=== PATIENT | male | born 1990 | race Caucasian/White ===

== ENCOUNTER 2017-01-08 11:59 | Inpatient (IN) | payer SELFPAY ==
[~2017-01-08] VITALS: Ht 170.2 cm; Wt 81.0 kg
[2017-01-08] MEDS ORDERED: ONDANSETRON HCL 4 MG/2 ML VIAL IV PUSH ONE (12:00)
[2017-01-08] MEDS ORDERED: PHENYLEPH/NS 1000 MCG/10 ML SYR IV ONE (12:00)
[2017-01-08] MEDS ORDERED: LIDOCAINE HCL 1% PF 5 ML AMPULE OTHER ONE (12:00)
[2017-01-08] MEDS ORDERED: MIDAZOLAM HCL 2 MG/2 ML VIAL IV ONE (12:00)
[2017-01-08] MEDS ORDERED: DEXAMETHASONE SOD PHOS 4 MG/ML VIAL IV ONE (12:00)
[2017-01-08] MEDS ORDERED: PROPOFOL 200 MG/20 ML AMP IV ONE (12:00)
[2017-01-08] MEDS ORDERED: SUCCINYLCHOLINE CHLORIDE 100 MG/5 ML SYRINGE IV PUSH ONE (12:00)
[2017-01-08] MEDS ORDERED: ESMOLOL HCL 100 MG/10 ML VIAL IV ONE (12:00)
[2017-01-08] MEDS ORDERED: SODIUM CHLORIDE 0.9% 20 ML VIAL IV ONE (12:00)
[2017-01-08] MEDS ORDERED: ePHEDrine/NS 25 MG/5 ML SYR IV ONE (12:00)
[2017-01-08 12:06] VITALS: BP 130/90; PULSE 85; RESP 17; TEMP 98.1; O2SAT 98
[2017-01-08] MEDS ORDERED: ONDANSETRON HCL 4 MG/2 ML VIAL IVP ONE (12:15)
[2017-01-08] MEDS ORDERED: MORPHINE SULFATE 4 MG/ML INJ IV PUSH ONE (12:15)
[2017-01-08] MEDS ORDERED: TETANUS/DIPHTHERIA TOXOID ADULT 0.5 ML VIAL IM ONE (12:15)
--- NOTE | 2017-01-08 12:15 | PD ---
HPI Chief Complaint: Laceration/Skin Injury Time Seen by Provider: 12:12 Travel History International Travel<30 days: No Contact w/Intl Traveler<30days: No Traveled to known affect area: No History of Present Illness HPI 26-year-old male presents to the ED via EMS after chain saw laceration to the anterior right lower leg. The event occurred around 10:30 a.m. Patient endorses limitations to range of motion, states that he cannot flex the toes. He denies numbness, tingling, weakness. Unsure of his last tetanus immunization. He denies chronic health problems and takes no daily medications. Last meal, a burrito, around 8:30 this morning. PFSH Past Medical History Hx Anticoagulant Therapy: No Social History Tobacco Use: Yes (1PPD) Allergies-Medications (Allergen,Severity, Reaction): Coded Allergies: No Known Allergies (Unverified , 01/08/17) Reported Meds & Prescriptions Reported Meds & Active Scripts Active No Active Prescriptions or Reported Medications Review of Systems Except as stated in HPI: all other systems reviewed are Neg Physical Exam Narrative GENERAL: Well-nourished, well-developed white male in no acute distress. SKIN: Focused skin assessment warm/dry. 5 cm laceration anterior lower right leg, proximal to the ankle joint. HEAD: Normocephalic. EYES: No scleral icterus. No injection or drainage. NECK: Supple, trachea midline. No JVD or lymphadenopathy. CARDIOVASCULAR: Regular rate and rhythm without murmurs, gallops, or rubs. RESPIRATORY: Breath sounds equal bilaterally. No accessory muscle use. GASTROINTESTINAL: Abdomen soft, non-tender, nondistended. MUSCULOSKELETAL: No cyanosis, or edema. FOCUSED RIGHT LOWER EXTREMITY EXAM: Foot resting in plantar flexion. 2+ anterior tibial pulse. No palpable DP pulse. Patient is able to flex the toes. Transection of the muscles visible at the superior extensor retinaculum. Unable to extend the toes. Refuses to dorsiflex the ankle 2/2 pain. Sensation intact to light touch distally. Cap refill less than 2 seconds. BACK: Nontender without obvious deformity. No CVA tenderness. Data Data Last Documented VS Vital Signs Date Time Temp Pulse Resp B/P (MAP) Pulse Ox O2 Delivery O2 Flow Rate FiO2 01/08/17 13:17 71 16 123/75 (91) 97 Room Air 01/08/17 12:06 98.1 Orders Orders Tibia/Fibula (Ap/Lat) (01/08/17 12:09) Ice/Cold Pack (01/08/17 12:09) Tetanus/Diphtheria Tox Adult (Tetanus/Di (01/08/17 12:15) Basic Metabolic Panel (Bmp) (01/08/17 12:09) Complete Blood Count With Diff (01/08/17 12:09) Iv Access Insert/Monitor (01/08/17 12:09) Ecg Monitoring (01/08/17 12:09) Oximetry (01/08/17 12:09) Morphine Inj (Morphine Inj) (01/08/17 12:15) Ondansetron Inj (Zofran Inj) (01/08/17 12:15) Sodium Chloride 0.9% Flush (Ns Flush) (01/08/17 12:15) Splinting (01/08/17 ) Electrocardiogram (01/08/17 ) Chest, Single Ap (01/08/17 ) Urinalysis - C+S If Indicated (01/08/17 13:10) NPO (01/08/17 13:10) Cefazolin Inj (Ancef Inj) (01/08/17 13:15) Consult Podiatry (01/08/17 ) Admit Order (Ed Use Only) (01/08/17 13:33) Labs Laboratory Tests Test 01/08/17 12:20 White Blood Count 9.0 TH/MM3 Red Blood Count 4.60 MIL/MM3 Hemoglobin 15.3 GM/DL Hematocrit 44.0 % Mean Corpuscular Volume 95.6 FL Mean Corpuscular Hemoglobin 33.3 PG Mean Corpuscular Hemoglobin Concent 34.8 % Red Cell Distribution Width 12.9 % Platelet Count 173 TH/MM3 Mean Platelet Volume 9.3 FL Neutrophils (%) (Auto) 78.8 % Lymphocytes (%) (Auto) 13.7 % Monocytes (%) (Auto) 5.5 % Eosinophils (%) (Auto) 1.7 % Basophils (%) (Auto) 0.3 % Neutrophils # (Auto) 7.1 TH/MM3 Lymphocytes # (Auto) 1.2 TH/MM3 Monocytes # (Auto) 0.5 TH/MM3 Eosinophils # (Auto) 0.2 TH/MM3 Basophils # (Auto) 0.0 TH/MM3 CBC Comment DIFF FINAL Differential Comment Blood Urea Nitrogen 13 MG/DL Creatinine 1.06 MG/DL Random Glucose 126 MG/DL Calcium Level 8.3 MG/DL Sodium Level 139 MEQ/L Potassium Level 4.2 MEQ/L Chloride Level 108 MEQ/L Carbon Dioxide Level 25.1 MEQ/L Anion Gap 6 MEQ/L Estimat Glomerular Filtration Rate 84 ML/MIN MDM Medical Decision Making Medical Screen Exam Complete: Yes Emergency Medical Condition: Yes Differential Diagnosis muscle transection versus laceration versus tendinous injury versus open fracture verses need for tetanus immunization versus other Narrative Course 26-year-old male presents to the ED via EMS after chain saw laceration to the anterior right lower leg. The event occurred around 10:30 a.m. Patient endorses limitations to range of motion, states that he cannot flex the toes. Unsure of his last tetanus immunization. Last meal, a burrito, around 8:30 this morning. Patient tachycardic on presentation, alert, oriented. Physical exam reveals a 4-5 cm laceration of the anterior aspect of the right lower leg, proximal to the ankle joint. Foot resting in plantar flexion. 2+ anterior tibial pulse. No palpable DP pulse. Patient is able to flex the toes. Transection of the muscles visible at the superior extensor retinaculum. Refuses to dorsiflex the ankle 2/2 pain. Sensation intact to light touch distally. Cap refill less than 2 seconds. The patient was ordered nothing by mouth. The wound was irrigated and a wet-to-dry dressing was applied. Tetanus immunization updated. Patient was administered 4 mg morphine IV. X-ray of the tibia-fibula reveals a cortical carolina of the tibia per my read. Patient was administered 1 g Ancef IV. I spoke with Dr. Gonzalez who will take the patient to surgery today. Short leg splint was placed at Dr. Gonzalez's request. I discussed this plan with the patient who is reluctantly agreeable. I discussed the patient with the residents who agree to accept him to the medicine service under Dr. Gutierrez. Please see medicine and podiatry notes for disposition. Scripts No Active Prescriptions or Reported Meds Lottie Paulino Jan 08, 2017 12:15
[2017-01-08] MEDS: SODIUM CHLORIDE 0.9% FLUSH 10 ML FLUSH IV FLUSH PRN ×2 (12:19→13:46)
[2017-01-08 12:39] LABS: AUTOMATED NEUTROPHIL # 7.1 TH/MM3 (1.8-7.7); BASOPHIL % 0.3 % (0.0-2.0); EOSINOPHIL # 0.2 TH/MM3 (0-0.4); EOSINOPHIL % 1.7 % (0.0-4.0); HEMO FLAGS DIFF FINAL; LYMPH % 13.7 % (9.0-44.0); LYMPHOCYTE # 1.2 TH/MM3 (1.0-4.8); MEAN CELL VOLUME 95.6 FL (80.0-100.0); MEAN CORPUSCULAR HEMOGLOBIN 33.3 PG (27.0-34.0); MEAN CORPUSCULAR HGB CONC 34.8 % (32.0-36.0); MONO % 5.5 % (0.0-8.0); NEUT % 78.8 % (16.0-70.0); PLATELET COUNT 173 TH/MM3 (150-450); RED CELL DISTRIBUTION WIDTH 12.9 % (11.6-17.2)
[2017-01-08 12:59] LABS: BICARBONATE 25.1 MEQ/L (21.0-32.0)
--- NOTE | 2017-01-08 13:01 | RADRPT ---
EXAM DATE/TIME: 01/08/2017 12:43 [facility] COMPARISON: No previous studies available for comparison. INDICATIONS : Chainsaw injury to right lower leg today MEDICAL HISTORY : None. SURGICAL HISTORY : None. ENCOUNTER: Initial ACUITY: 1 day PAIN SCORE: 10/10 LOCATION: Right tib/fib FINDINGS: Two view examination of the right tibia demonstrates soft tissue laceration and swelling distally. Mary Ann cency in the distal tibia and fibula consistent with incomplete nondisplaced fracture along the anter ior cortex suspected. CONCLUSION: Nondisplaced fracture along the anterior cortex of the tibia and fibula. Thierry Lopes MD on January 08, 2017 at 12:58 Board Certified Radiologist. This report was verified electronically.
[2017-01-08 13:06] LABS: POTASSIUM 4.2 MEQ/L (3.5-5.1)
[2017-01-08 13:17] VITALS: BP 123/75; PULSE 71; RESP 16; O2SAT 97
--- NOTE | 2017-01-08 13:45 | HHI.HP ---
HPI Service Family Medicine Primary Care Physician No Primary Care Physician Admission Diagnosis laceration right anterior chandler with tendinous injury Diagnoses: International Travel<30 Days: No Contact w/Intl Traveler<30days: No Known Affected Area: No History of Present Illness 26 year old generally healthy male presents to the ED after a chain saw accident. He was cutting a tree when the chain saw "kicked back" and struck his right lower anterior leg. The laceration reached deep into the muscle and slightly into the cortex of the tibia and fibula. He reports he had "quite a bit " of bleeding. His pain is currently well controlled with morphine. The accident happened at 10:30 this morning. The chain saw only struck the place described above and did not strike any other part of his body. He is not feeling weak, dizzy, or lightheaded. He is not having chest pain, shortness of breath, abdominal pain, nausea, vomiting. He is unable to dorsiflex his foot but is still able to plantar flex. He has palpable pulses, posterior tibial and dorsalis pedis. He has normal color of his foot. He has mild numbness in his toes, but is also wearing an ice pack. He received tetanus toxoid in the ED, and does not know when his last tetanus shot was. He has no significant past medical history and no history of surgeries. He does smoke a pack per day. He had childhood asthma that resolved as an adult. He reports no drug use. He drinks a moderate amount of alcohol but has never had alcohol withdrawals or seizures. (Ronald lGaser MD R3) Review of Systems Constitutional: DENIES: Fatigue, Fever, Weight gain, Weight loss, Change in appetite Endocrine: DENIES: Polyuria, Polyphagia Eyes: DENIES: Blurred vision, Double Vision Ears, nose, mouth, throat: DENIES: Ear Pain Respiratory: DENIES: Cough, Shortness of breath Cardiovascular: DENIES: Chest pain Gastrointestinal: DENIES: Abdominal pain, Constipation, Diarrhea, Nausea, Vomiting Hematologic/lymphatic: DENIES: Lymphadenopathy Neurologic: DENIES: Headache, Seizures, Tremor Psychiatric: DENIES: Anxiety, Depression (Ronald Glaser MD R3) Past Family Social History Past Medical History Childhood asthma, resolved in adulthood Past Surgical History None Reported Medications Reported Meds & Active Scripts Active No Active Prescriptions or Reported Medications (Ronald Glaser MD R3) Allergies: Coded Allergies: No Known Allergies (Unverified , 01/08/17) Active Ordered Medications Inpatient Medications Cefazolin Sodium 1000 mg/Sodium Chloride 100 ml @ 200 mls/hr ONCE ONCE IV Last administered on 01/08/17 13:46; Start 01/08/17 at 13:15; Stop 01/08/17 at 13:44; Status DC Morphine Sulfate (Morphine Inj) 4 mg ONCE ONCE IV PUSH Last administered on 12:19; Start 01/08/17 at 12:15; Stop 01/08/17 at 12:16; Status DC Ondansetron HCl (Zofran Inj) 4 mg ONCE ONCE IVP Last administered on 12:19; Start 01/08/17 at 12:15; Stop 01/08/17 at 12:16; Status DC Sodium Chloride 1,000 ml @ 999 mls/hr BOLUS ONCE IV ; Start 01/08/17 at 14:00 ; Stop 01/08/17 at 15:00 Sodium Chloride (NS Flush) 2 ml UNSCH PRN IV FLUSH FLUSH AFTER USING IV ACCESS Last administered on 01/08/17 13:46; Start 01/08/17 at 12:15 Tetanus/ Diphtheria Toxoids (Tetanus/ Diphtheria Tox Adult) 0.5 ml ONCE ONCE IM Last administered on 01/08/17 12:18; Start 01/08/17 at 12:15; Stop at 12:16; Status DC Family History Father: healthy Mother: healthy Siblings: healthy Social History Smoking: pack per day Alcohol: 3-4 times a week, small amount each time Drug use: None 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 Laceration extends deep into the muscle. HEENT: Normocephalic, no conjunctivitis, no nasal discharge, normal pharynx, Mallampati class II Neck: No thyromegaly, no lymphadenopathy, supple CV: RRR, no murmurs, rubs, or gallops. PT and DP pulses intact in right foot. Normal capillary refill in right foot. Color symmetrical between feet. Lungs: CTAB, no wheezing. Abdomen: Soft, nontender, non-distended, normal bowel sounds. Ext: No swelling, right lower leg with ice pack, laceration packed with gauze and wrapped. Psych: Appropriate affect Neuro: Awake, alert, intact sensation in right foot. Unable to dorsiflex right foot, but can plantar flex right foot. Laboratory Laboratory Tests Test 01/08/17 12:20 White Blood Count 9.0 Red Blood Count 4.60 Hemoglobin 15.3 Hematocrit 44.0 Mean Corpuscular Volume 95.6 Mean Corpuscular Hemoglobin 33.3 Mean Corpuscular Hemoglobin Concent 34.8 Red Cell Distribution Width 12.9 Platelet Count 173 Mean Platelet Volume 9.3 Neutrophils (%) (Auto) 78.8 Lymphocytes (%) (Auto) 13.7 Monocytes (%) (Auto) 5.5 Eosinophils (%) (Auto) 1.7 Basophils (%) (Auto) 0.3 Neutrophils # (Auto) 7.1 Lymphocytes # (Auto) 1.2 Monocytes # (Auto) 0.5 Eosinophils # (Auto) 0.2 Basophils # (Auto) 0.0 CBC Comment DIFF FINAL Differential Comment Blood Urea Nitrogen 13 Creatinine 1.06 Random Glucose 126 Calcium Level 8.3 Sodium Level 139 Potassium Level 4.2 Chloride Level 108 Carbon Dioxide Level 25.1 Anion Gap 6 Estimat Glomerular Filtration Rate 84 (Ronald Glaser MD R3) Result Diagram: 01/08/17 1220 01/08/17 1220 Imaging Last 72 hours Impressions Tibia/Fibula X-Ray 01/08/17 1209 Signed Impressions: Service Date/Time: Sunday, January 08, 2017 12:43 - CONCLUSION: Nondisplaced fracture along the anterior cortex of the tibia and fibula. Thierry Lopes MD (Ronald Glaser MD R3) Septic Shock Reassessment Heart: Regular rate and rhythm Lungs: Clear Skin: Warm Capillary Refill: <2 seconds (Ronald Glaser MD R3) Caprini VTE Risk Assessment Caprini VTE Risk Assessment: Mod/High Risk (score >= 2) VTE Pharm Contraindication: High risk for bleeding Caprini Risk Assessment Model Point Value = 1 Point Value = 2 Point Value = 3 Point Value = 5 Age 41-60 Minor surgery BMI > 25 kg/m2 Swollen legs Varicose veins or History of unexplained or recurrent spontaneous Oral contraceptives or hormone replacement Sepsis (< 1 month) Serious lung disease, including pneumonia (< 1 month) Abnormal pulmonary function Acute myocardial infarction Congestive heart failure (< 1 month) History of inflammatory bowel disease Medical patient at bed rest Age 61-74 Arthroscopic surgery Major open surgery (> 45 min) Laparoscopic surgery (> 45 min) Malignancy Confined to bed (> 72 hours) Immobilizing plaster cast Central venous access Age >= 75 History of VTE Family history of VTE Factor V Leiden Prothrombin [id number] Lupus anticoagulant Anticardiolipin antibodies Elevated serum homocysteine Heparin-induced thrombocytopenia Other congenital or acquired thrombophilia Stroke (< 1 month) Elective arthroplasty Hip, pelvis, or leg fracture Acute spinal cord injury (< 1 month) Prophylaxis Regimen Total Risk Factor Score Risk Level Prophylaxis Regimen 0-1 Low Early ambulation 2 Moderate Order ONE of the following: *Sequential Compression Device (SCD) *Heparin 5000 units SQ BID 3-4 Higher Order ONE of the following medications: *Heparin 5000 units SQ TID *Enoxaparin/Lovenox 40 mg SQ daily (WT < 150 kg, CrCl > 30 mL/min) *Enoxaparin/Lovenox 30 mg SQ daily (WT < 150 kg, CrCl > 10-29 mL/min) *Enoxaparin/Lovenox 30 mg SQ BID (WT < 150 kg, CrCl > 30 mL/min) AND/OR *Sequential Compression Device (SCD) 5 or more Highest Order ONE of the following medications: *Heparin 5000 units SQ TID (Preferred with Epidurals) *Enoxaparin/Lovenox 40 mg SQ daily (WT < 150 kg, CrCl > 30 mL/min) *Enoxaparin/Lovenox 30 mg SQ daily (WT < 150 kg, CrCl > 10-29 mL/min) *Enoxaparin/Lovenox 30 mg SQ BID (WT < 150 kg, CrCl > 30 mL/min) AND *Sequential Compression Device (SCD) (Ronald Glaser MD R3) Assessment and Plan Assessment and Plan 26 year old male presents with soft tissue laceration of the right lower leg with flexor tendon injury, along with incomplete non-displaced fracture along the anterior cortex of the distal tibia and fibula. Code Status FULL CODE Discussed Condition With Discussed with Dr. Peterson, Dr. Roque, Dr. Gutierrez (Ronald Glaser MD R3) Attending Attestation The patient has been seen and examined. The chart and all resident notes have been reviewed. I agree that inpatient care is appropriate and that a two midnight stay is expected for the reasons documented in the resident history and physical. I have discussed this with the resident and certify the resident s order for inpatient admission. (Lakesha Gutierrez MD) Problem List: (1) Laceration of right lower extremity ICD Codes: S81.811A - Laceration without foreign body, right lower leg, initial encounter Status: Acute Plan: 26 year old male presents with soft tissue laceration of the right lower leg with flexor tendon injury, along with incomplete non-displaced fracture along the anterior cortex of the distal tibia and fibula. - Cefazolin pre-operatively - Tetanus toxoid given in ED - Add tetanus immune globulin given uncertain vaccine history and large/dirty wound - Follow up MRI of lower leg - Podiatry consulted, Dr. Gonzalez. Plan for OR today. - Regular neurovascular checks, monitor for compartment syndrome. - Pain management: Ibuprofen 400 mg q6hrs scheduled, Percocet 5-325 for pain 3-5 , Percocet 10-325 for pain 6-10, morphine 2 mg for breakthrough pain. Adjust as needed. (2) Nondisplaced fracture of distal end of right tibia ICD Codes: S82.301A - Unspecified fracture of lower end of right tibia, initial encounter for closed fracture Status: Acute Plan: Non-displaced fracture of the cortex of the distal anterior tibia/fibula from chain saw accident. - Non-weight bearing status - Ice/cold pack for inflammation/swelling - Monitor for compartment syndrome - Physical therapy consultation - Orthopedics consultation - Likely will require long-cast and crutches - See above for pain management (3) Nondisplaced physeal fracture of distal end of right fibula ICD Codes: S89.301A - Unspecified physeal fracture of lower end of right fibula , initial encounter for closed fracture Status: Acute Plan: See plan above (4) Nutrition, metabolism, and development symptoms ICD Codes: R63.8 - Other symptoms and signs concerning food and fluid intake Status: Acute Plan: NPO pending surgery Normal electrolytes NS at 100 mls/hr (5) Contraindication to anticoagulation therapy ICD Codes: Z53.09 - Procedure and treatment not carried out because of other contraindication Status: Acute Plan: Hold anticoagulation pre-op (Ronald Glaser MD R3) Ronald Glaser MD R3 Jan 08, 2017 13:45 Lakesha Gutierrez MD Jan 09, 2017 16:52
[2017-01-08] MEDS ORDERED: SODIUM CHLOR 0.9% 1000 ML INJ 1,000 ML IV ONE (14:00)
--- NOTE | 2017-01-08 14:02 | PD.VS.CON ---
History of Present Illness Chief Complaint: R lower leg laceration, nonpalpable pulse Consult Requested by: Dr. Gonzalez History of Present Illness 26 yo male with no other medical problems who cut his RIGHT leg this morning about 1030 with a chainsaw. Has diminished motor function and no palpable pulse per report. The patient notes that there was " a lot of blood " on scene. Past/Family/Social History Past Medical History tobacco abuse Past Surgical History none Social History smoker Family History [place] Home Medications No Active Prescriptions or Reported Meds Coded Allergies: No Known Allergies (Unverified , 01/08/17) Review of Systems Cardiovascular: DENIES: Lower Extremity Edema Musculoskeletal: COMPLAINS OF: Joint pain Physical Exam Vitals/I&O Date Time Temp Pulse Resp B/P (MAP) Pulse Ox O2 Delivery O2 Flow Rate FiO2 01/08/17 13:17 71 16 123/75 (91) 97 Room Air 01/08/17 12:06 98.1 85 17 130/90 (103) 98 Neuro: alert, oriented, no distress HEENT: NC/AT; anicteric sclera Neck: trachea midline Heart: reg rate Lungs: nonlabored breathing Vascular: palpable DP and PT on RIGHT foot Extremities: Large, deep laceration with exposed muscle Palpable DP distal to laceration diminished ability to dorsiflex foot Laboratory Tests Test 01/08/17 12:20 White Blood Count 9.0 Red Blood Count 4.60 Hemoglobin 15.3 Hematocrit 44.0 Mean Corpuscular Volume 95.6 Mean Corpuscular Hemoglobin 33.3 Mean Corpuscular Hemoglobin Concent 34.8 Red Cell Distribution Width 12.9 Platelet Count 173 Mean Platelet Volume 9.3 Neutrophils (%) (Auto) 78.8 Lymphocytes (%) (Auto) 13.7 Monocytes (%) (Auto) 5.5 Eosinophils (%) (Auto) 1.7 Basophils (%) (Auto) 0.3 Neutrophils # (Auto) 7.1 Lymphocytes # (Auto) 1.2 Monocytes # (Auto) 0.5 Eosinophils # (Auto) 0.2 Basophils # (Auto) 0.0 CBC Comment DIFF FINAL Differential Comment Blood Urea Nitrogen 13 Creatinine 1.06 Random Glucose 126 Calcium Level 8.3 Sodium Level 139 Potassium Level 4.2 Chloride Level 108 Carbon Dioxide Level 25.1 Anion Gap 6 Estimat Glomerular Filtration Rate 84 Last 48 hours Impressions Tibia/Fibula X-Ray 01/08/17 1209 Signed Impressions: Service Date/Time: Sunday, January 08, 2017 12:43 - CONCLUSION: Nondisplaced fracture along the anterior cortex of the tibia and fibula. Thierry Lopes MD Assessment and Plan Plan no vascular intervention warranted as palpable DP and PT. If intra-operative assistance needed, will be available Discussed with Dr. Gonzalez. Cale Carvalho MD [facility] [employer] psychology professor [facility] - Heart and Vascular Surgery at [facility] [phone] Cale Carvalho MD Jan 08, 2017 14:02
[2017-01-08] MEDS ORDERED: BISACODYL 10 MG SUPP RECTAL PRN (14:15)
[2017-01-08] MEDS ORDERED: NALOXONE HCL 0.4 MG/ML AMP IV PUSH PRN ×2 (14:15→14:30)
[2017-01-08] MEDS ORDERED: LACTULOSE SYRUP 20 GM/30 ML CUP PO PRN (14:15)
[2017-01-08] MEDS ORDERED: SENNOSIDES 8.6 MG TAB PO PRN (14:15)
[2017-01-08] MEDS ORDERED: MAGNESIUM HYDROXIDE SUSP 30 ML CUP PO PRN (14:15)
[2017-01-08] MEDS ORDERED: ONDANSETRON HCL 4 MG/2 ML VIAL IVP PRN (14:15)
[2017-01-08] MEDS ORDERED: IBUPROFEN 400 MG TAB PO PRN (14:30)
[2017-01-08] MEDS ORDERED: oxyCODONE/ACETAMINOPHEN 5 MG/325 MG TAB PO PRN (14:30)
--- NOTE | 2017-01-08 14:30 | RADRPT ---
EXAM DATE/TIME: 01/08/2017 13:43 [facility] COMPARISON: No previous studies available for comparison. INDICATIONS : Rule out communicable diseases, pneumonia, pneumothorax. MEDICAL HISTORY : Laceration right leg. SURGICAL HISTORY : None. ENCOUNTER: Initial ACUITY: 1 day PAIN SCORE: 0/10 LOCATION: Bilateral chest FINDINGS: A single view of the chest demonstrates the lungs to be symmetrically aerated without evidence of mas s, infiltrate or effusion. The cardiomediastinal contours are unremarkable. Osseous structures are intact with a mild dextroscoliosis of the dorsal spine which could be positional. CONCLUSION: No acute cardiopulmonary process. Ras Otoole MD on January 08, 2017 at 14:27 Board Certified Radiologist. This report was verified electronically.
[2017-01-08] MEDS: MORPHINE SULFATE 2 MG/ML INJ IV PUSH PRN ×3 (14:37→23:20)
[2017-01-08] MEDS ORDERED: NEOMYCIN/POLYMYXIN 1 ML G.U. IRRIGANT ONE (14:38)
[2017-01-08] MEDS ORDERED: ACETAMINOPHEN 1000 MG/100 ML 100 ML IV ONE (14:39)
[2017-01-08] MEDS ORDERED: HYDROmorphone HCL PF 2 MG/ML VIAL ONE (14:40)
[2017-01-08] MEDS ORDERED: LIDOCAINE HCL 1% 50 ML VIAL ONE (14:47)
[2017-01-08] MEDS ORDERED: BUPIVACAINE HCL PF 0.5% 30 ML VIAL ONE (14:47)
[2017-01-08] MEDS ORDERED: IBUPROFEN 400 MG TAB PO ONE (15:00)
[2017-01-08] MEDS ORDERED: TETANUS IMMUNE GLOBULIN (HUMAN) 250 UNITS/ML SYRINGE IM ONE (15:15)
[2017-01-08] MEDS ORDERED: GENTAMICIN 80 MG PREMIX 100 ML ONE (15:21)
[2017-01-08] MEDS ORDERED: ceFAZolin 2 GM PREMIX 50 ML ONE (15:21)
--- NOTE | 2017-01-08 16:15 | PD ---
Data Data Last Documented VS Vital Signs Date Time Temp Pulse Resp B/P (MAP) Pulse Ox O2 Delivery O2 Flow Rate FiO2 01/08/17 13:17 71 16 123/75 (91) 97 Room Air 01/08/17 12:06 98.1 Orders Orders Tibia/Fibula (Ap/Lat) (01/08/17 12:09) Ice/Cold Pack (01/08/17 12:09) Tetanus/Diphtheria Tox Adult (Tetanus/Di (01/08/17 12:15) Basic Metabolic Panel (Bmp) (01/08/17 12:09) Complete Blood Count With Diff (01/08/17 12:09) Iv Access Insert/Monitor (01/08/17 12:09) Ecg Monitoring (01/08/17 12:09) Oximetry (01/08/17 12:09) Morphine Inj (Morphine Inj) (01/08/17 12:15) Ondansetron Inj (Zofran Inj) (01/08/17 12:15) Sodium Chloride 0.9% Flush (Ns Flush) (01/08/17 12:15) Splinting (01/08/17 ) Electrocardiogram (01/08/17 ) Chest, Single Ap (01/08/17 ) Urinalysis - C+S If Indicated (01/08/17 13:10) NPO (01/08/17 13:10) Cefazolin Inj (Ancef Inj) (01/08/17 13:15) Consult Podiatry (01/08/17 ) Admit Order (Ed Use Only) (01/08/17 13:33) Labs Laboratory Tests Test 01/08/17 12:20 White Blood Count 9.0 TH/MM3 Red Blood Count 4.60 MIL/MM3 Hemoglobin 15.3 GM/DL Hematocrit 44.0 % Mean Corpuscular Volume 95.6 FL Mean Corpuscular Hemoglobin 33.3 PG Mean Corpuscular Hemoglobin Concent 34.8 % Red Cell Distribution Width 12.9 % Platelet Count 173 TH/MM3 Mean Platelet Volume 9.3 FL Neutrophils (%) (Auto) 78.8 % Lymphocytes (%) (Auto) 13.7 % Monocytes (%) (Auto) 5.5 % Eosinophils (%) (Auto) 1.7 % Basophils (%) (Auto) 0.3 % Neutrophils # (Auto) 7.1 TH/MM3 Lymphocytes # (Auto) 1.2 TH/MM3 Monocytes # (Auto) 0.5 TH/MM3 Eosinophils # (Auto) 0.2 TH/MM3 Basophils # (Auto) 0.0 TH/MM3 CBC Comment DIFF FINAL Differential Comment Blood Urea Nitrogen 13 MG/DL Creatinine 1.06 MG/DL Random Glucose 126 MG/DL Calcium Level 8.3 MG/DL Sodium Level 139 MEQ/L Potassium Level 4.2 MEQ/L Chloride Level 108 MEQ/L Carbon Dioxide Level 25.1 MEQ/L Anion Gap 6 MEQ/L Estimat Glomerular Filtration Rate 84 ML/MIN MDM Supervised Visit with ELICEO: Yes Narrative Course The history, exam, and medical decision-making in the associated midlevel provider note were completed with my assistance. I reviewed and agree with the findings presented. I attest that I had a [id number] encounter with the patient on the same day, and personally performed and documented my assessment and findings in the medical record. *My assessment and Findings: This is a 26-year-old male who presents to the emergency department having accidentally had a chainsaw injury his distal right lower extremity. On exam he has a deep laceration down to the bone and through tendon on the anterior aspect of the distal tibia. He has a palpable posterior tibial pulse but his DP pulse on the right side is not appreciated on exam. His foot is warm and well perfused so I doubt a significant vascular injury the case was discussed with vascular surgery. Patient will be admitted by podiatry for surgical debridement and repair Scripts No Active Prescriptions or Reported Meds Megha Adan MD Jan 08, 2017 16:15
[2017-01-08] MEDS ORDERED: NALOXONE HCL 0.4 MG/ML AMP ONE (16:55)
[2017-01-08] MEDS ORDERED: DO NOT ADM ANY ANTICOAGULANT DRUGS PRN (17:00)
--- NOTE | 2017-01-08 17:04 | PD.CONS ---
History of Present Illness Service Podiatry Consult Requested By ED Reason for Consult R leg injury, s/p chainsaw vs leg Primary Care Physician No Primary Care Physician Diagnoses: History of Present Illness 26 year old generally healthy male presents to the ED after a chain saw accident. He was cutting a tree when the chain saw "kicked back" and struck his right lower anterior leg. The laceration reached deep into the muscle and slightly into the cortex of the tibia and fibula. He reports he had "quite a bit " of bleeding. His pain is currently well controlled with morphine. The accident happened at 10:30 this morning. The chain saw only struck the place described above and did not strike any other part of his body. He is not feeling weak, dizzy, or lightheaded. He is not having chest pain, shortness of breath, abdominal pain, nausea, vomiting. He is unable to dorsiflex his foot but is still able to plantar flex. He has palpable pulses, posterior tibial and dorsalis pedis. He has normal color of his foot. He has mild numbness in his toes, but is also wearing an ice pack. He received tetanus toxoid in the ED, and does not know when his last tetanus shot was. He has no significant past medical history and no history of surgeries. He does smoke a pack per day. He had childhood asthma that resolved as an adult. He reports no drug use. He drinks a moderate amount of alcohol but has never had alcohol withdrawals or seizures. Past Family Social History Allergies: Coded Allergies: No Known Allergies (Unverified , 01/08/17) Past Medical History Childhood asthma, resolved in adulthood Past Surgical History denies Active Ordered Medications Current Medications Medications (Trade) Dose Ordered Sig/Donavon Route Start Time Stop Time Status Last Admin (NS Flush) 2 ml UNSCH PRN IV FLUSH 01/08/17 12:15 01/08/17 13:46 Sodium Chloride 1,000 ml @ 100 mls/hr Q10H IV 01/08/17 14:15 (Zofran Inj) 4 mg Q6H PRN IVP 01/08/17 14:15 (Narcan Inj) 0.4 mg UNSCH PRN IV PUSH 01/08/17 14:15 (Dottie-Colace) 1 tab BID PO 01/08/17 21:00 (Milk Of Magnesia Liq) 30 ml Q12H PRN PO 01/08/17 14:15 (Senokot) 17.2 mg Q12H PRN PO 01/08/17 14:15 (Dulcolax Supp) 10 mg DAILY PRN RECTAL 01/08/17 14:15 (Lactulose Liq) 30 ml DAILY PRN PO 01/08/17 14:15 (Percocet 5-325 Mg) 1 tab Q6H PRN PO 01/08/17 14:30 (Percocet 10-325 Mg) 1 tab Q6H PRN PO 01/08/17 14:30 (Morphine Inj) 2 mg Q3H PRN IV PUSH 01/08/17 14:30 01/08/17 14:37 Family History denies Social History Smoking: pack per day Alcohol: 3-4 times a week, small amount each time Drug use: None 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 Unable to dorsiflex R foot at ankle. Sensation to digits, brisk capillary refill to digits Laboratory Laboratory Tests Test 01/08/17 12:20 White Blood Count 9.0 Red Blood Count 4.60 Hemoglobin 15.3 Hematocrit 44.0 Mean Corpuscular Volume 95.6 Mean Corpuscular Hemoglobin 33.3 Mean Corpuscular Hemoglobin Concent 34.8 Red Cell Distribution Width 12.9 Platelet Count 173 Mean Platelet Volume 9.3 Neutrophils (%) (Auto) 78.8 Lymphocytes (%) (Auto) 13.7 Monocytes (%) (Auto) 5.5 Eosinophils (%) (Auto) 1.7 Basophils (%) (Auto) 0.3 Neutrophils # (Auto) 7.1 Lymphocytes # (Auto) 1.2 Monocytes # (Auto) 0.5 Eosinophils # (Auto) 0.2 Basophils # (Auto) 0.0 CBC Comment DIFF FINAL Differential Comment Blood Urea Nitrogen 13 Creatinine 1.06 Random Glucose 126 Calcium Level 8.3 Sodium Level 139 Potassium Level 4.2 Chloride Level 108 Carbon Dioxide Level 25.1 Anion Gap 6 Estimat Glomerular Filtration Rate 84 Result Diagram: 01/08/17 1220 01/08/17 1220 Imaging Last 72 hours Impressions Tibia/Fibula X-Ray 01/08/17 1209 Signed Impressions: Service Date/Time: Sunday, January 08, 2017 12:43 - CONCLUSION: Nondisplaced fracture along the anterior cortex of the tibia and fibula. Thierry Lopes MD Chest X-Ray 01/08/17 0000 Signed Impressions: Service Date/Time: Sunday, January 08, 2017 13:43 - CONCLUSION: No acute cardiopulmonary process. Ras Otoole MD Assessment and Plan Assessment and Plan R leg laceration to tendon/bone To OR for I&D R leg Discussed with patient multiple surgeries will be required for limb salvage Conrad Gonzalez DPM Jan 08, 2017 17:04
[2017-01-08] MEDS ORDERED: *MEPERIDINE 25 MG INJ VIAL PERIprocedural Use ONLY ONE (17:16)
--- NOTE | 2017-01-08 17:38 | HHI.PR ---
Immediate Post Op Note Procedure Date: Jan 08, 2017 Pre Op Diagnosis: Right lower leg deep laceration with tendon/bone laceration, severed anterior tibial artery, chainsaw vs leg Post Op Diagnosis: Same Surgeon: Conrad Gonzalez DPM [employer] Strategy Planner(s): Staff Procedure: Irrigation and debridement R leg Findings: Consistent with diagnosis. Anterior leg laceration down to level of bone noted approx 10cm proximal to ankle joint area with debris in wound. In proximal aspect of wound, anterior tibial artery pulsation noted. Defer to vascular recommendation to tie off anterior tibial artery in proximal and distal aspects of wound and proceeded to do so. Longitudinal incision made down along anterior compartment approximately 7cm in length to locate retracted tendons. Level of musculotendinous junction was where laceration was noted to anterior tibialis muscle, extensor hallucis longus muscle, and extensor digitorum longus muscle. All were located and tagged, then irrigation of area with 9L NS with irrigant , followed by debridement of nonviable tissue down to level of bone. Anterior tibia noted to be affected with cortical damage to anterior crest at level of laceration. No gross debris noted. Curettage of the bone took place, followed by loose approximation of each respective tendon, followed by loose approximation of skin with 2-0 nylon. Xeroform, dsd, and short posterior splint applied. NWB RLE PT to eval/treat To OR for another I&D in approx 2 days. Repair of tendon when negative culture x 2 Additional Information: Ancef 2g, Gentamicin 80mg Complications: None Specimen(s) removed: Culture R leg Estimated blood loss: 30mL Anesthesia: General Drains: None IVF Tourniquet time (min at mmHg) 10 min R thigh @250mmHg Patient to: PACU Patient Condition: Good Date/Time of Procedure: SEE SURGICAL CARE RECORD Conrad Gonzalez DPM Jan 08, 2017 17:38
[2017-01-08] MEDS ORDERED: KETOROLAC TROMETHAMINE 30 MG/ML (IVP) VIAL ONE (17:39)
[2017-01-08] MEDS ORDERED: MORPHINE SULFATE 8 MG/ML INJ ONE (17:53)
[2017-01-08] MEDS: SODIUM CHLOR 0.9% 1000 ML INJ 1,000 ML IV SCH (18:00)
[2017-01-08 20:48] VITALS: BP 128/69; PULSE 84; RESP 18; TEMP 97.3; O2SAT 96
[2017-01-08] MEDS: DOCUSATE SODIUM 50 MG/SENNA 8.6 MG TAB PO SCH (21:05)
[2017-01-08] MEDS: ceFAZolin 2 GM PREMIX 50 ML IV SCH (21:05)
[2017-01-08] MEDS: oxyCODONE/ACETAMINOPHEN 10 MG/325 MG TAB PO PRN (21:06)
--- NOTE | 2017-01-08 21:36 | EKG ---
Date Performed: 01/08/2017 Time Performed: 14:22:13 PTAGE: 26 years EKG: Sinus rhythm WITH SINUS ARRHYTHMIA NORMAL ECG NO PREVIOUS TRACING DOCTOR: Ilda Hood Interpretating Date/Time 01/08/2017 21:35:56
[2017-01-08 22:12] VITALS: O2SAT 96
[2017-01-08] MEDS: GENTAMICIN 80 MG PREMIX 100 ML IV SCH (23:20)
[2017-01-09 00:33] VITALS: BP 118/59; PULSE 80; RESP 18; TEMP 97; O2SAT 96
[2017-01-09] MEDS: oxyCODONE/ACETAMINOPHEN 10 MG/325 MG TAB PO PRN ×3 (02:38→21:58)
[2017-01-09] MEDS: MORPHINE SULFATE 2 MG/ML INJ IV PUSH PRN ×6 (04:14→20:11)
[2017-01-09 04:28] VITALS: BP 116/68; PULSE 89; RESP 18; TEMP 97.1; O2SAT 96
[2017-01-09] MEDS: ceFAZolin 2 GM PREMIX 50 ML IV SCH ×3 (05:19→20:11)
[2017-01-09] MEDS: SODIUM CHLOR 0.9% 1000 ML INJ 1,000 ML IV SCH ×3 (05:22→20:15)
--- NOTE | 2017-01-09 06:53 | PD.CONS ---
cc: Deng Echavarria Jr., MD HPI Service Orthopedic Surgeons Consult Requested By Primary Care Physician No Primary Care Physician Admission Diagnosis laceration right anterior chandler with tendinous injury Diagnoses: Chief Complaint: Right leg injury with chainsaw History of Present Illness 26yo male with no significant past medical history presented to emergency department with chainsaw injury to the right leg. This occurred while cutting a tree yesterday morning. The saw kicked back and struck him in anterior aspect of the right leg causing significant pain. He presented with inability to plantar or dorsiflex the right foot secondary to pain. -X-ray taken the emergency department reveal anterior distal tibia wound with small anterior tibia. -Denies any head injuries. Denies loss of consciousness. -Currently he is alert, pain localized at the anterior distal tibia. He is s/p right leg wound I&D by Podiatry yesterday. patient's is 3 out of 10, exacerbated by any attempted range of motion at the ankle, WB, relieved at rest and with IV pain medicine, pain is sharp nonradiating, dull, not associated with any paresthesia and numbness to the extremity. PFSH Past Family Social History Allergies: Coded Allergies: No Known Allergies (Unverified , 01/08/17) Past Medical History Childhood asthma, resolved in adulthood Past Surgical History denies Active Ordered Medications Current Medications Medications (Trade) Dose Ordered Sig/Donavon Route Start Time Stop Time Status Last Admin (NS Flush) 2 ml UNSCH PRN IV FLUSH 01/08/17 12:15 01/08/17 13:46 Sodium Chloride 1,000 ml @ 100 mls/hr Q10H IV 01/08/17 14:15 (Zofran Inj) 4 mg Q6H PRN IVP 01/08/17 14:15 (Narcan Inj) 0.4 mg UNSCH PRN IV PUSH 01/08/17 14:15 (Dottie-Colace) 1 tab BID PO 01/08/17 21:00 (Milk Of Magnesia Liq) 30 ml Q12H PRN PO 01/08/17 14:15 (Senokot) 17.2 mg Q12H PRN PO 01/08/17 14:15 (Dulcolax Supp) 10 mg DAILY PRN RECTAL 01/08/17 14:15 (Lactulose Liq) 30 ml DAILY PRN PO 01/08/17 14:15 (Percocet 5-325 Mg) 1 tab Q6H PRN PO 01/08/17 14:30 (Percocet 10-325 Mg) 1 tab Q6H PRN PO 01/08/17 14:30 (Morphine Inj) 2 mg Q3H PRN IV PUSH 01/08/17 14:30 01/08/17 14:37 Family History denies Social History Smoking: pack per day Alcohol: 3-4 times a week, small amount each time Drug use: None 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 [employer] Constitutional: DENIES: Diaphoretic episodes, Fatigue, Fever, Weight gain, Weight loss, Chills, Dizziness, Change in appetite, Night Sweats Endocrine: DENIES: Heat/cold intolerance, Polydipsia, Polyuria, Polyphagia Eyes: DENIES: Blurred vision, Diplopia, Eye inflammation, Eye pain, Vision loss , Photosensitivity, Double Vision Ears, nose, mouth, throat: DENIES: Tinnitus, Hearing loss, Vertigo, Nasal discharge, Oral lesions, Throat pain, Hoarseness, Ear Pain, Running Nose, Epistaxis, Sinus Pain, Toothache, Odynophagia Respiratory: DENIES: Apneas, Cough, Snoring, Wheezing, Hemoptysis, Sputum production, Shortness of breath Cardiovascular: DENIES: Chest pain, Palpitations, Syncope, Dyspnea on Exertion , PND, Lower Extremity Edema, Orthopnea, Claudication Past Family Social History Allergies: Coded Allergies: No Known Allergies (Unverified , 01/08/17) Active Ordered Medications Current Medications Medications (Trade) Dose Ordered Sig/Donavon Route Start Time Stop Time Status Last Admin (NS Flush) 2 ml UNSCH PRN IV FLUSH 01/08/17 12:15 01/08/17 13:46 Sodium Chloride 1,000 ml @ 100 mls/hr Q10H IV 01/08/17 14:15 01/09/17 05:22 (Zofran Inj) 4 mg Q6H PRN IVP 01/08/17 14:15 (Narcan Inj) 0.4 mg UNSCH PRN IV PUSH 01/08/17 14:15 (Dottie-Colace) 1 tab BID PO 01/08/17 21:00 01/08/17 21:05 (Milk Of Magnesia Liq) 30 ml Q12H PRN PO 01/08/17 14:15 (Senokot) 17.2 mg Q12H PRN PO 01/08/17 14:15 (Dulcolax Supp) 10 mg DAILY PRN RECTAL 01/08/17 14:15 (Lactulose Liq) 30 ml DAILY PRN PO 01/08/17 14:15 (Percocet 5-325 Mg) 1 tab Q6H PRN PO 01/08/17 14:30 (Percocet 10-325 Mg) 1 tab Q6H PRN PO 01/08/17 14:30 01/09/17 02:38 (Morphine Inj) 2 mg Q3H PRN IV PUSH 01/08/17 14:30 01/09/17 04:14 Miscellaneous Information ALL NURSING DEPARTME... UNSCH PRN .XX 01/08/17 17:00 01/09/17 16:59 Cefazolin Sodium/ Dextrose 50 ml @ 100 mls/hr Q8H IV 01/08/17 22:00 01/09/17 05:19 Gentamicin Sulfate/Sodium Chloride 100 ml @ 200 mls/hr Q8H IV 01/09/17 00:00 01/08/17 23:20 Reported Meds & Active Scripts Active No Active Prescriptions or Reported Medications Physical Exam Vital Signs Vital Signs Date Time Temp Pulse Resp B/P (MAP) Pulse Ox O2 Delivery O2 Flow Rate FiO2 01/09/17 04:28 97.1 89 18 116/68 (84) 96 01/09/17 00:33 97.0 80 18 118/59 (78) 96 01/08/17 22:12 96 21 01/08/17 20:48 97.3 84 18 128/69 (88) 96 01/08/17 18:20 97.8 77 15 126/66 (86) 99 Nasal Cannula 3 01/08/17 18:00 85 15 133/72 (92) 99 Nasal Cannula 3 01/08/17 17:45 93 15 141/77 (98) 99 Nasal Cannula 3 01/08/17 17:30 96 14 148/75 (99) 96 Nasal Cannula 3 01/08/17 17:16 97.0 114 14 170/93 (118) 92 Nasal Cannula 3 01/08/17 15:12 01/08/17 13:17 71 16 123/75 (91) 97 Room Air 01/08/17 12:06 98.1 85 17 130/90 (103) 98 Physical Exam Alert awake and oriented x 3. No acute distress. Head: NC/AT Neck: No pain with any range of motion and neck. Trachea is midline. No tenderness to palpation along posterior cervical elements. Pulmonary: Normal respiratory effort. Bilateral upper extremity: No deformities Intact sensation distally in median, ulnar, and radial nerve. Intact motor in anterior interosseous, posterior interosseous, and ulnar nerve. 2+ radial artery pulses. Good cap refill. RIGHT lower extremity: Splint in place. Toes warm well perfused. No toe extension/ankle flexion. able to flex toes. Dressing CDI. Supple compartments. Negative Homans sign. LEFT lower extremity: No deformity, grossly Neurovascularly intact, +EHL/FHL. + PT/DP pulses. Supple compartments. Negative Homans sign. Laboratory Laboratory Tests Test 01/08/17 12:20 White Blood Count 9.0 Red Blood Count 4.60 Hemoglobin 15.3 Hematocrit 44.0 Mean Corpuscular Volume 95.6 Mean Corpuscular Hemoglobin 33.3 Mean Corpuscular Hemoglobin Concent 34.8 Red Cell Distribution Width 12.9 Platelet Count 173 Mean Platelet Volume 9.3 Neutrophils (%) (Auto) 78.8 Lymphocytes (%) (Auto) 13.7 Monocytes (%) (Auto) 5.5 Eosinophils (%) (Auto) 1.7 Basophils (%) (Auto) 0.3 Neutrophils # (Auto) 7.1 Lymphocytes # (Auto) 1.2 Monocytes # (Auto) 0.5 Eosinophils # (Auto) 0.2 Basophils # (Auto) 0.0 CBC Comment DIFF FINAL Differential Comment Blood Urea Nitrogen 13 Creatinine 1.06 Random Glucose 126 Calcium Level 8.3 Sodium Level 139 Potassium Level 4.2 Chloride Level 108 Carbon Dioxide Level 25.1 Anion Gap 6 Estimat Glomerular Filtration Rate 84 Date/Time Source Procedure Growth Status 01/08/17 16:26 Wound Ankle Fungal Smear Pending Received 01/08/17 16:26 Wound Ankle Fungal Culture Pending Received Result Diagram: 01/08/17 1220 01/08/17 1220 Imaging Last 72 hours Impressions Tibia/Fibula X-Ray 01/08/17 1209 Signed Impressions: Service Date/Time: Sunday, January 08, 2017 12:43 - CONCLUSION: Nondisplaced fracture along the anterior cortex of the tibia and fibula. Thierry Lopes MD Chest X-Ray 01/08/17 0000 Signed Impressions: Service Date/Time: Sunday, January 08, 2017 13:43 - CONCLUSION: No acute cardiopulmonary process. Ras Otoole MD Assessment & Plan Assessment and Plan 26-year-old male with no significant past medical history sustained a chainsaw injury to the right anterior distal tibia yesterday. The patient appears to have damage to musculature in the anterior compartment on exam. He was taken to surgery yesterday by podiatry, with the plan for repeat irrigation and tendon repair at later time. Please let me know if I can be of any help. SIGN OFF Deng Echavarria Jr., MD Jan 09, 2017 06:53
[2017-01-09 07:43] VITALS: BP 111/71; PULSE 71; RESP 18; TEMP 96.8; O2SAT 97
[2017-01-09 08:49] LABS: AUTOMATED NEUTROPHIL # 14.5 TH/MM3 (1.8-7.7); BASOPHIL % 0.1 % (0.0-2.0); EOSINOPHIL % 0.2 % (0.0-4.0); HEMO FLAGS DIFF FINAL; LYMPH % 8.1 % (9.0-44.0); LYMPHOCYTE # 1.4 TH/MM3 (1.0-4.8); MEAN CORPUSCULAR HEMOGLOBIN 33.1 PG (27.0-34.0); MEAN CORPUSCULAR HGB CONC 34.5 % (32.0-36.0); MONO % 5.7 % (0.0-8.0); NEUT % 85.9 % (16.0-70.0); PLATELET COUNT 157 TH/MM3 (150-450); RED BLOOD COUNT 4.17 MIL/MM3 (4.50-5.90); RED CELL DISTRIBUTION WIDTH 13.3 % (11.6-17.2); WHITE BLOOD COUNT 16.9 TH/MM3 (4.0-11.0)
[2017-01-09] MEDS: DOCUSATE SODIUM 50 MG/SENNA 8.6 MG TAB PO SCH ×2 (09:00→20:11)
[2017-01-09 09:26] LABS: BICARBONATE 27.2 MEQ/L (21.0-32.0); POTASSIUM 3.9 MEQ/L (3.5-5.1)
--- NOTE | 2017-01-09 10:43 | RADRPT ---
EXAM DATE/TIME: 01/09/2017 09:55 [facility] COMPARISON: TIBIA/FIBULA RIGHT (AP/LAT), January 08, 2017, 12:43. INDICATIONS : Trauma. Accident with chainsaw to right leg. MEDICAL HISTORY : None. SURGICAL HISTORY : Debridement right leg. ENCOUNTER: Initial ACUITY: 2 day PAIN SCORE: 4/10 LOCATION: Right leg TECHNIQUE: Multiplanar multisequence MRI examination of the lower leg was performed witho ut contrast. FINDINGS: Laceration is seen in the ankle, just above the tibial plafond. There is cortical injury to both the tibia and fibula. Laceration is from 5 to 9:00 to 12:00. Given its location this should involve th e muscular tendinous junction all peroneus longus and brevis. The bulk of the injury appears to invo lve the muscle itself. Injury does does appear to be above the lateral collateral ligament complex. CONCLUSION: Traumatic laceration as described above the majority of which is 3-5 cm above the tib ial plafond and lateral collateral ligament complex. There is involvement of the muscular portion of the peroneus longus and brevis. There is cortical bony injury as well. Eduardo Naranjo MD FACR on January 09, 2017 at 10:35 Board Certified Radiologist. This report was verified electronically.
[2017-01-09] MEDS: GENTAMICIN 80 MG PREMIX 100 ML IV SCH ×3 (11:48→23:55)
[2017-01-09 12:00] VITALS: BP 134/73; PULSE 90; RESP 19; TEMP 97.8; O2SAT 97
[2017-01-09] MEDS ORDERED: ALPRAZolam 0.5 MG TAB PO PRN (12:00)
[2017-01-09] MEDS ORDERED: Vancomycin Consult Pharmacy 1 EA OTHER SCH (12:00)
[2017-01-09] MEDS ORDERED: VANCOMYCIN INJ 1,000 MG in SODIUM CHLOR 0.9% 250 ML INJ 250 ML IV SCH (12:00)
[2017-01-09] MEDS ORDERED: LORazepam 1 MG TAB PO PRN (12:45)
[2017-01-09] MEDS ORDERED: LORazepam 2 MG TAB PO PRN (12:45)
[2017-01-09] MEDS ORDERED: FLUMAZENIL 0.5 MG/5 ML VIAL IV PUSH PRN (12:45)
[2017-01-09] MEDS ORDERED: LORazepam 2 MG/ML VIAL IV PUSH PRN ×4 (12:45)
[2017-01-09] MEDS: VANCOMYCIN INJ 1,750 MG in SODIUM CHLORID 0.9% 500 ML INJ 500 ML IV SCH (13:09)
[2017-01-09 15:30] VITALS: BP 142/76; PULSE 91; RESP 19; TEMP 96.9; O2SAT 98
--- NOTE | 2017-01-09 16:13 | PD.WCN.NOT ---
Wound Consult Additional Information: Patient not seen. Podiatry Doctor Lisa performed surgery for irrigation and debridement on 01/08/2017 and plans for follow up debridement in 2 days. Please defer to podiatry for wound care orders and recommendations. Wound care inpatient is signing off. [facility] Jan 09, 2017 16:13
--- NOTE | 2017-01-09 16:52 | HHI.FPPN ---
Subjective Subjective Patient seen and examined with the resident team this am. Case reviewed and discussed Please refer to resident H&P for further details regarding HPI, ROS, PMH, SurgHx , FH and SocHx In summary, patient is a 26yoM without prior medical history presenting via [facility] with a chain saw trauma. He was outside around 1030 on the day of admission and slipped cutting his RLE with a chain saw. Initial imaging studies in the ED demonstrated contact as deep as the bone with multiple muscular and tendinous injuries. Patient is seen post-operatively in his hospital room. His pain is controlled. He is panicked about the potential loss of his limb. No other injuries sustained during accident. No fevers overnight. [facility] Objective Objective Last Impressions Lower Extremity MRI 01/09/17 0000 Signed Impressions: Service Date/Time: Monday, January 09, 2017 09:55 - CONCLUSION: Traumatic laceration as described above the majority of which is 3-5 cm above the tibial plafond and lateral collateral ligament complex. There is involvement of the muscular portion of the peroneus longus and brevis. There is cortical bony injury as well. Eduardo Naranjo MD FACR Tibia/Fibula X-Ray 01/08/17 1209 Signed Impressions: Service Date/Time: Sunday, January 08, 2017 12:43 - CONCLUSION: Nondisplaced fracture along the anterior cortex of the tibia and fibula. Thierry Lopes MD Chest X-Ray 01/08/17 0000 Signed Impressions: Service Date/Time: Sunday, January 08, 2017 13:43 - CONCLUSION: No acute cardiopulmonary process. Ras Otoole MD Laboratory Tests - Abnormals Test 01/09/17 07:32 White Blood Count 16.9 TH/MM3 Red Blood Count 4.17 MIL/MM3 Neutrophils (%) (Auto) 85.9 % Lymphocytes (%) (Auto) 8.1 % Neutrophils # (Auto) 14.5 TH/MM3 Monocytes # (Auto) 1.0 TH/MM3 Random Glucose 109 MG/DL Calcium Level 8.2 MG/DL Vital Signs 01/08/17 01/08/17 01/08/17 01/08/17 17:16 17:30 17:45 18:00 Temp 97.0 Pulse 114 96 93 85 Resp 14 14 15 15 B/P (MAP) 170/93 (118) 148/75 (99) 141/77 (98) 133/72 (92) Pulse Ox 92 96 99 99 O2 Delivery Nasal Cannula Nasal Cannula Nasal Cannula Nasal Cannula O2 Flow Rate 3 3 3 3 01/08/17 01/08/17 01/08/17 01/09/17 18:20 20:48 22:12 00:33 Temp 97.8 97.3 97.0 Pulse 77 84 80 Resp 15 18 18 B/P (MAP) 126/66 (86) 128/69 (88) 118/59 (78) Pulse Ox 99 96 96 96 O2 Delivery Nasal Cannula O2 Flow Rate 3 FiO2 21 01/09/17 01/09/17 01/09/17 01/09/17 04:28 07:43 11:50 12:00 Temp 97.1 96.8 97.8 Pulse 89 71 90 Resp 18 18 16 19 B/P (MAP) 116/68 (84) 111/71 (84) 134/73 (93) Pulse Ox 96 97 97 01/09/17 01/09/17 14:20 15:30 Temp 96.9 Pulse 91 Resp 16 19 B/P (MAP) 142/76 (98) Pulse Ox 98 Physical exam GENERAL: wdwn male, NAD, mildly anxious SKIN: Warm and dry. No rashes. HEAD: Normocephalic. AT EYES: No scleral icterus. No injection or drainage. ENT: OP clear. mmm NECK: Supple, trachea midline. No JVD or lymphadenopathy. CARDIOVASCULAR: Regular rate and rhythm without audible murmurs, gallops, or rubs. RESPIRATORY: Breath sounds equal and clear bilaterally. No accessory muscle use. GASTROINTESTINAL: Abdomen soft, non-tender, nondistended. Normal active BS MUSCULOSKELETAL: No cyanosis, or edema. Toes are NV intact distal to surgical site. Dressing intact. BACK: Nontender without obvious deformity. No CVA tenderness. Assessment Assessment 26yoM with: Trauma chain saw injury, risk for osteomyelitis Nondisplaced distal tibia fracture Tobacco dependence Regular alcohol use Leukocytosis PLAN PLAN Podiatry has been consulted for surgical intervention Empiric antibiotic therapy for OM Monitor for infection, fever Pain control PT Bowel regimen Counseled on tobacco and EtOH CIWA Patient seen and examined with the resident team. Case reviewed and discussed Agree with plan of care as discussed with me and documented in the resident note. Lakesha Gutierrez MD Jan 09, 2017 16:52
[2017-01-09] MEDS: HEPARIN SODIUM - SQ 10,000 UNITS/ML VIAL SQ SCH (18:04)
[2017-01-09 18:14] LABS: BLOOD, URINE NEG (NEG); COMMENT (UR) CULT NOT INDICATED; CULTURE IF INDICATED CULT NOT INDICATED; GLUCOSE,URINE NEG (NEG); KETONE, URINE NEG (NEG); MUCUS URINE FEW /lpf (OCC); NITRITE,URINE NEG (NEG); PH, URINE 6.5 (5.0-8.5); URINE COLOR YELLOW (YELLW/STRAW)
[2017-01-09 19:45] VITALS: BP 144/81; PULSE 98; RESP 19; TEMP 98.2; O2SAT 97
[2017-01-09] MEDS ORDERED: LACTATED RINGER'S 1000 ML IV PRN (22:30)
[2017-01-09] MEDS ORDERED: METOPROLOL TARTRATE 25 MG TAB PO PRN (22:30)
[2017-01-09] MEDS ORDERED: SODIUM CHLORID 0.9% 500 ML IV PRN (22:30)
[2017-01-09] MEDS ORDERED: POVIDONE IODINE 5% (ANTISEPSIS KIT) 4 APPLICATIONS EACH NARE PRN (22:30)
[2017-01-09] MEDS ORDERED: CHLORHEXIDINE GLUCONATE 2 % 1 PACK (2 CLOTHS) TOPICAL PRN (22:30)
--- NOTE | 2017-01-09 22:34 | PD.POD ---
Subjective Podiatric Problems Right lower leg deep laceration with tendon/bone laceration, severed anterior tibial artery, chainsaw vs leg s/p I&D R leg 01/08/17 Dr Gonzalez Past Med/Surg/Social History Social History Smoking Status: Current Every Day Smoker Objective Vital Signs Vital Signs Date Time Temp Pulse Resp B/P (MAP) Pulse Ox O2 Delivery O2 Flow Rate FiO2 01/09/17 19:45 98.2 98 19 144/81 (102) 97 01/09/17 16:18 16 01/09/17 15:30 96.9 91 19 142/76 (98) 98 01/09/17 14:20 16 01/09/17 12:00 97.8 90 19 134/73 (93) 97 01/09/17 07:43 96.8 71 18 111/71 (84) 97 01/09/17 04:28 97.1 89 18 116/68 (84) 96 01/09/17 00:33 97.0 80 18 118/59 (78) 96 Coded Allergies: No Known Allergies (Unverified , 01/08/17) Physical Exam Remarks Splint/dressing clean, dry, intact RLE. NVI with brisk capillary refill and sensation intact to digits. Assessment & Plan A/P Right lower leg deep laceration with tendon/bone laceration, severed anterior tibial artery, chainsaw vs leg s/p Irrigation and debridement R leg 01/08/17 Dr Gonzalez To OR tomorrow PM for repeat washout R leg. Continue NWB RLE PT to eval/treat NWB with crutches To OR for Repair of tendons if tomorrow's culture negative likely on Saturday Conrad Gonzalez DPM Jan 09, 2017 22:34
[2017-01-10] VITALS: BP 150/73; PULSE 90; RESP 16; TEMP 97.3; O2SAT 96
[2017-01-10] MEDS: VANCOMYCIN INJ 1,750 MG in SODIUM CHLORID 0.9% 500 ML INJ 500 ML IV SCH ×2 (01:02→12:35)
[2017-01-10] MEDS: MORPHINE SULFATE 2 MG/ML INJ IV PUSH PRN ×6 (01:03→19:12)
[2017-01-10] MEDS: HEPARIN SODIUM - SQ 10,000 UNITS/ML VIAL SQ SCH ×2 (02:00→08:02)
[2017-01-10 04:00] VITALS: BP 153/95; PULSE 80; RESP 16; TEMP 97.1; O2SAT 96
[2017-01-10] MEDS: oxyCODONE/ACETAMINOPHEN 10 MG/325 MG TAB PO PRN (05:13)
[2017-01-10] MEDS: ceFAZolin 2 GM PREMIX 50 ML IV SCH ×3 (05:16→23:49)
[2017-01-10] MEDS: SODIUM CHLOR 0.9% 1000 ML INJ 1,000 ML IV SCH ×2 (06:15→16:15)
[2017-01-10 07:09] LABS: HEMATOCRIT 36.4 % (39.0-51.0); MEAN CELL VOLUME 95.9 FL (80.0-100.0); MEAN CORPUSCULAR HEMOGLOBIN 33.7 PG (27.0-34.0); MEAN CORPUSCULAR HGB CONC 35.1 % (32.0-36.0); PLATELET COUNT 147 TH/MM3 (150-450); RED BLOOD COUNT 3.79 MIL/MM3 (4.50-5.90); RED CELL DISTRIBUTION WIDTH 13.2 % (11.6-17.2); REVIEW FLAG FINAL; WHITE BLOOD COUNT 9.6 TH/MM3 (4.0-11.0)
[2017-01-10 07:35] LABS: BICARBONATE 29.6 MEQ/L (21.0-32.0); POTASSIUM 4.1 MEQ/L (3.5-5.1)
[2017-01-10 08:00] VITALS: BP 140/72; PULSE 61; RESP 17; TEMP 97.2; O2SAT 94
[2017-01-10] MEDS: DOCUSATE SODIUM 50 MG/SENNA 8.6 MG TAB PO SCH ×2 (08:03→21:00)
[2017-01-10] MEDS ORDERED: MENTHOL LOZENGE BUCCAL PRN (08:15)
[2017-01-10] MEDS ORDERED: KETOROLAC TROMETHAMINE 60 MG/2 ML (IM) VIAL IM SCH ×2 (08:30→09:00)
[2017-01-10] MEDS: NYSTAT/DIPHENHY/LIDO MOUTHWASH (Adult) 120ML SWISH-SWAL SCH ×4 (09:00→21:00)
[2017-01-10] MEDS ORDERED: oxyCODONE/ACETAMINOPHEN 5 MG/325 MG TAB PO SCH (09:00)
--- NOTE | 2017-01-10 09:55 | HHI.FPPN ---
Subjective Remarks Patient seen and examined this morning. He was upset because he was not walking up to receive his pain medication and states that if he doesn't receive it on time he spends the rest of the time catching up. He was able to speak with the supervisor treating and pumping yesterday who explained more about the condition of his leg. He wanted to know if he could eat breakfast since he was supposed to go to the OR much later in the day. He states that his chest hurts, his neck hurts, and pretty much every part of his body hurts because he is not accustomed to lying in bed all day doing nothing. He is getting really bored and even thought of leaving the hospital earlier in the morning, but he does realize that he might be here for a while. Objective Vitals Vital Signs Date Time Temp Pulse Resp B/P (MAP) Pulse Ox O2 Delivery O2 Flow Rate FiO2 01/10/17 08:00 97.2 61 17 140/72 (94) 94 01/10/17 04:00 97.1 80 16 153/95 (114) 96 01/10/17 00:00 97.3 90 16 150/73 (98) 96 01/09/17 19:45 98.2 98 19 144/81 (102) 97 01/09/17 16:18 16 01/09/17 15:30 96.9 91 19 142/76 (98) 98 01/09/17 14:20 16 01/09/17 12:00 97.8 90 19 134/73 (93) 97 I/O 01/09/17 01/09/17 01/09/17 01/10/17 01/10/17 01/10/17 07:00 15:00 23:00 07:00 15:00 23:00 Intake Total 240 ml 530 ml 1130 ml Output Total 1100 ml 600 ml Balance -860 ml 530 ml 530 ml Intake Oral 240 ml 480 ml 480 ml IV Total 50 ml 650 ml Output Urine Total 1100 ml 600 ml # Voids 2 # Bowel Movements 0 0 0 Result Diagram: 01/10/1762901/10/17629 Objective Remarks GENERAL: wdwn male, NAD, upset but calm SKIN: Warm and dry. No rashes. HEAD: Normocephalic. AT EYES: No scleral icterus. No injection or drainage. ENT: OP clear. MMM NECK: Supple, trachea midline. No JVD or lymphadenopathy. CARDIOVASCULAR: Regular rate and rhythm without audible murmurs, gallops, or rubs. RESPIRATORY: Breath sounds equal and clear bilaterally. No accessory muscle use. GASTROINTESTINAL: Abdomen soft, non-tender, nondistended. Normal active BS MUSCULOSKELETAL: No cyanosis, or edema. Toes are NV intact distal to surgical site. Dressing intact. A/P Assessment and Plan 26 year old male admitted with soft tissue, tendon/bone laceration of the right lower leg with severed anterior tibial artery, along with incomplete non- displaced fracture along the anterior cortex of the distal tibia and fibula. Seen and examined with Dr. Peterson. Discussed with Dr. Gutierrez Discharge Planning Pending podiatry recommendations Problem List: (1) Laceration of right lower extremity ICD Codes: S81.811A - Laceration without foreign body, right lower leg, initial encounter Status: Acute Plan: 26 year old male presents with soft tissue laceration of the right lower leg with flexor tendon injury, severed anterior tibial artery, along with incomplete non-displaced fracture along the anterior cortex of the distal tibia and fibula. - Initial washout was performed on 01/08 with repeat washout today 01/10. - Repair of tendons possibly on Friday 01/12 if wound cultures are negative. - Tetanus toxoid given in ED, tetanus immune globulin administered - Podiatry consulted, Dr. Gonzalez managing - Regular neurovascular checks, monitor for compartment syndrome - Gentamicin 80 mg premix IV every 8 hours, cefazolin 2 g premix IV every 8 hours, vancomycin 1750 mg IV every 12 hours with pharmacy consult - Pain management: Percocet 10-325 for pain 6-10 scheduled, Toradol 60 mg IV 6 hours scheduled, morphine 2 mg IV every 3 hours for breakthrough pain. Adjust as needed. - Non-weight bearing status - Ice/cold pack for inflammation/swelling - Monitor for compartment syndrome - Physical therapy consultation - Likely will require long-cast and crutches (2) Nutrition, metabolism, and development symptoms ICD Codes: R63.8 - Other symptoms and signs concerning food and fluid intake Status: Acute Plan: NPO pending surgery Normal electrolytes NS at 100 mls/hr (3) Contraindication to anticoagulation therapy ICD Codes: Z53.09 - Procedure and treatment not carried out because of other contraindication Status: Acute Plan: -Heparin 5000 units subcutaneous every 8 hours, Hold anticoagulation until 24 hours after surgery Alethea Roque MD R2 Jan 10, 2017 09:55
[2017-01-10] MEDS: GENTAMICIN 80 MG PREMIX 100 ML IV SCH ×3 (11:20→23:48)
[2017-01-10] MEDS: oxyCODONE/ACETAMINOPHEN 10 MG/325 MG TAB PO SCH ×3 (11:21→23:48)
[2017-01-10 11:25] VITALS: O2SAT 98
[2017-01-10 12:00] VITALS: BP 122/71; PULSE 76; RESP 17; TEMP 98.1; O2SAT 96
[2017-01-10] MEDS ORDERED: ONDANSETRON HCL 4 MG/2 ML VIAL IV PUSH ONE (12:00)
[2017-01-10] MEDS ORDERED: LIDOCAINE HCL 1% PF 5 ML SYRINGE OTHER ONE (12:00)
[2017-01-10] MEDS ORDERED: PROPOFOL 200 MG/20 ML AMP IV ONE (12:00)
[2017-01-10] MEDS ORDERED: MIDAZOLAM HCL 2 MG/2 ML VIAL IV ONE (12:00)
[2017-01-10] MEDS ORDERED: DEXAMETHASONE SOD PHOS 4 MG/ML VIAL IV ONE (12:00)
[2017-01-10 16:00] VITALS: BP 130/71; PULSE 75; RESP 17; TEMP 96.8; O2SAT 97
[2017-01-10] MEDS ORDERED: KETOROLAC TROMETHAMINE 30 MG/ML (IVP) VIAL IV PUSH SCH (18:00)
[2017-01-10] MEDS ORDERED: BUPIVACAINE HCL PF 0.25% 30 ML VIAL ONE (18:28)
[2017-01-10] MEDS ORDERED: NEOMYCIN/POLYMYXIN 1 ML G.U. IRRIGANT ONE (20:05)
[2017-01-10] MEDS ORDERED: DO NOT ADM ANY ANTICOAGULANT DRUGS PRN (21:19)
[2017-01-10] MEDS ORDERED: MORPHINE SULFATE 4 MG/ML INJ ONE ×2 (21:33→22:08)
--- NOTE | 2017-01-10 21:36 | HHI.PR ---
Immediate Post Op Note Procedure Date: Jan 10, 2017 Pre Op Diagnosis: Right lower leg deep laceration with tendon/bone laceration, severed anterior tibial artery, chainsaw vs leg Post Op Diagnosis: Same Surgeon: Conrad Gonzalez DPM Allergy Nurse(s): Staff Procedure: Irrigation and debridement R leg Findings: Consistent with diagnosis. Anterior leg laceration and longitudinal incision opened and irrigation of area with 9L NS with irrigant, followed by debridement of nonviable tissue down to level of bone. No gross debris noted. Curettage of the bone took place, followed by culture and loose approximation of skin with 2-0 nylon. Xeroform, dsd, and short posterior splint applied. NWB RLE PT to eval/treat Repair of tendons on Saturday if this culture negative Additional Information: n/a Complications: none Specimen(s) removed: culture R leg Estimated blood loss: 10mL Anesthesia: General Drains: None IVF Tourniquet time (min at mmHg) n/a Patient to: PACU Patient Condition: Good Date/Time of Procedure: SEE SURGICAL CARE RECORD Conrad Gonzalez DPM Jan 10, 2017 21:36
[2017-01-10] MEDS: KETOROLAC TROMETHAMINE 30 MG/ML (IVP) VIAL IV PUSH SCH (23:48)
[2017-01-11] VITALS (7 sets, daily range): BP systolic 105–154; BP diastolic 55–97; PULSE 50–109; RESP 16–18; TEMP 96.8–97.5; O2SAT 94–98
[2017-01-11] MEDS: VANCOMYCIN INJ 1,750 MG in SODIUM CHLORID 0.9% 500 ML INJ 500 ML IV SCH ×2 (01:14→20:06)
[2017-01-11] MEDS: SODIUM CHLOR 0.9% 1000 ML INJ 1,000 ML IV SCH ×3 (02:15→22:15)
[2017-01-11] MEDS: MORPHINE SULFATE 2 MG/ML INJ IV PUSH PRN ×4 (02:33→17:57)
[2017-01-11] MEDS: SODIUM CHLORIDE 0.9% FLUSH 10 ML FLUSH IV FLUSH PRN ×2 (02:33→21:07)
[2017-01-11] MEDS: oxyCODONE/ACETAMINOPHEN 10 MG/325 MG TAB PO SCH ×4 (03:00→21:09)
[2017-01-11] MEDS: KETOROLAC TROMETHAMINE 30 MG/ML (IVP) VIAL IV PUSH SCH ×3 (05:52→17:47)
[2017-01-11] MEDS: ceFAZolin 2 GM PREMIX 50 ML IV SCH ×3 (05:53→21:06)
[2017-01-11 06:57] LABS: AUTOMATED NEUTROPHIL # 9.9 TH/MM3 (1.8-7.7); BASOPHIL % 0.2 % (0.0-2.0); EOSINOPHIL % 0.1 % (0.0-4.0); HEMATOCRIT 37.5 % (39.0-51.0); HEMO FLAGS DIFF FINAL; LYMPH % 5.9 % (9.0-44.0); LYMPHOCYTE # 0.7 TH/MM3 (1.0-4.8); MEAN CELL VOLUME 95.3 FL (80.0-100.0); MEAN CORPUSCULAR HEMOGLOBIN 33.8 PG (27.0-34.0); MEAN CORPUSCULAR HGB CONC 35.5 % (32.0-36.0); MONO % 4.4 % (0.0-8.0); NEUT % 89.4 % (16.0-70.0); PLATELET COUNT 164 TH/MM3 (150-450); RED BLOOD COUNT 3.93 MIL/MM3 (4.50-5.90); RED CELL DISTRIBUTION WIDTH 12.8 % (11.6-17.2); WHITE BLOOD COUNT 11.1 TH/MM3 (4.0-11.0)
[2017-01-11 07:01] LABS: BICARBONATE 29.5 MEQ/L (21.0-32.0); POTASSIUM 4.3 MEQ/L (3.5-5.1)
[2017-01-11] MEDS: DOCUSATE SODIUM 50 MG/SENNA 8.6 MG TAB PO SCH ×2 (08:05→21:06)
[2017-01-11] MEDS: NYSTAT/DIPHENHY/LIDO MOUTHWASH (Adult) 120ML SWISH-SWAL SCH ×3 (08:06→21:07)
[2017-01-11] MEDS: GENTAMICIN 80 MG PREMIX 100 ML IV SCH ×2 (08:07→17:46)
[2017-01-11] MEDS ORDERED: PHARMACY ORDERED LAB ONE (12:45)
--- NOTE | 2017-01-11 16:03 | HHI.FPPN ---
Subjective Remarks No acute events overnight. Vital signs are stable. Wound cultures are negative to date and still pending. He continues with Toradol and Percocet for pain control, with morphine for breakthrough pain. Pain is decently controlled with administrating of pain medications. He has normal appetite, no chest pain or shortness of breath, no abdominal pain, no nausea, vomiting, or diarrhea, no calf tenderness. He is continuing with gentamicin and vancomycin for empiric coverage for chain saw wound. He had incision, drainage, debridement of the wound on 01/08 and repeated again on 01/10. Objective Vitals Vital Signs Date Time Temp Pulse Resp B/P (MAP) Pulse Ox O2 Delivery O2 Flow Rate FiO2 01/11/17 12:00 97.4 86 17 133/80 (97) 97 01/11/17 09:52 95 01/11/17 08:00 97.3 50 17 129/67 (87) 95 01/11/17 04:00 96.8 55 16 105/55 (72) 94 01/11/17 00:00 97.5 109 16 154/97 (116) 95 01/10/17 22:15 77 11 124/77 (93) 97 Nasal Cannula 2 01/10/17 22:00 80 11 126/74 (91) 97 Nasal Cannula 2 01/10/17 21:45 76 14 139/87 (104) 98 Nasal Cannula 3 01/10/17 21:30 77 14 121/81 (94) 98 Nasal Cannula 3 01/10/17 21:25 98.2 78 14 147/86 (106) 99 Nasal Cannula 3 01/10/17 16:00 96.8 75 17 130/71 (90) 97 I/O 01/10/17 01/10/17 01/10/17 01/11/17 01/11/17 01/11/17 07:00 15:00 23:00 07:00 15:00 23:00 Intake Total 1130 ml 937.5 ml 1030 ml 1833 ml 420 ml Output Total 600 ml 550 ml 10 ml 1475 ml Balance 530 ml 387.5 ml 1020 ml 358 ml 420 ml Intake Oral 480 ml 320 ml 480 ml 480 ml 420 ml IV Total 650 ml 617.5 ml 150 ml 1353 ml Other 400 ml Output Urine Total 600 ml 550 ml 1475 ml Estimated Blood Loss 10 ml # Voids 4 2 5 # Bowel Movements 0 0 0 Result Diagram: 01/11/17 0540 01/11/17 0540 Imaging Last 72 hours Impressions Lower Extremity MRI 01/09/17 0000 Signed Impressions: Service Date/Time: Monday, January 09, 2017 09:55 - CONCLUSION: Traumatic laceration as described above the majority of which is 3-5 cm above the tibial plafond and lateral collateral ligament complex. There is involvement of the muscular portion of the peroneus longus and brevis. There is cortical bony injury as well. Eduardo Naranjo MD FACR Objective Remarks GENERAL: Sitting up in bed, no distress SKIN: No rashes or lesions. Wound from chain saw currently wrapped. No obvious drainage, wrap is clear and dry. HEAD: Normocephalic. No conjunctivitis, no nasal discharge. EYES: No scleral icterus. No injection or drainage. ENT: No nasal discharge NECK: Supple, trachea midline. CARDIOVASCULAR: Regular rate and rhythm without audible murmurs, gallops, or rubs. RESPIRATORY: Breath sounds equal and clear bilaterally. No accessory muscle use. GASTROINTESTINAL: Abdomen soft, non-tender, nondistended. Normal active BS MUSCULOSKELETAL: Able to move all toes, normal capillary refill in toes, normal sensation in toes, can palpate the dorsalis pedis and PT pulses. Procedures Incision, drainage, and debridement of chain saw wound on 01/08, with repeat done on 01/10. A/P Assessment and Plan 26 year old male admitted with soft tissue, tendon/bone laceration of the right lower leg with severed anterior tibial artery, along with incomplete non- displaced fracture along the anterior cortex of the distal tibia and fibula. Discharge Planning Pending repair of tendons and closure of wound, negative wound cultures. Problem List: (1) Laceration of right lower extremity ICD Codes: S81.811A - Laceration without foreign body, right lower leg, initial encounter Status: Acute Plan: 26 year old male presents with soft tissue laceration of the right lower leg with flexor tendon injury, severed anterior tibial artery, along with incomplete non-displaced fracture along the anterior cortex of the distal tibia and fibula. - Initial washout was performed on 01/08 with repeat washout 01/10. - Repair of tendons possibly on Friday 01/12 if wound cultures are negative. - Tetanus toxoid given in ED, tetanus immune globulin administered - Podiatry consulted, Dr. Gonzalez managing - Regular neurovascular checks, monitor for compartment syndrome - Gentamicin 80 mg premix IV every 8 hours, cefazolin 2 g premix IV every 8 hours, vancomycin 1750 mg IV every 12 hours with pharmacy consult - Pain management: Percocet 10-325 for pain 6-10 scheduled, Toradol 60 mg IV 6 hours scheduled, morphine 2 mg IV every 3 hours for breakthrough pain. Adjust as needed. - Non-weight bearing status - Ice/cold pack for inflammation/swelling - Physical therapy consultation - Likely will require long-cast and crutches (2) Nutrition, metabolism, and development symptoms ICD Codes: R63.8 - Other symptoms and signs concerning food and fluid intake Status: Acute Plan: Regular diet, NPO after midnight in case OR tomorrow for repair of tendons Normal electrolytes NS at 100 mls/hr (3) Contraindication to anticoagulation therapy ICD Codes: Z53.09 - Procedure and treatment not carried out because of other contraindication Status: Acute Plan: -Heparin 5000 units subcutaneous every 8 hours, Hold anticoagulation until 24 hours after surgery Ronald Glaser MD R3 Jan 11, 2017 16:03
[2017-01-12] VITALS: BP 129/71; PULSE 71; RESP 18; TEMP 96.7; O2SAT 98
[2017-01-12] MEDS: GENTAMICIN 80 MG PREMIX 100 ML IV SCH ×2 (01:03→08:00)
[2017-01-12] MEDS: KETOROLAC TROMETHAMINE 30 MG/ML (IVP) VIAL IV PUSH SCH ×4 (01:06→12:37)
[2017-01-12] MEDS: SODIUM CHLORIDE 0.9% FLUSH 10 ML FLUSH IV FLUSH PRN (01:07)
[2017-01-12] MEDS: MORPHINE SULFATE 2 MG/ML INJ IV PUSH PRN (01:07)
[2017-01-12] MEDS: oxyCODONE/ACETAMINOPHEN 10 MG/325 MG TAB PO SCH ×4 (03:00→14:08)
[2017-01-12] MEDS: ceFAZolin 2 GM PREMIX 50 ML IV SCH ×2 (05:21→14:09)
[2017-01-12 07:03] LABS: BASOPHIL % 0.4 % (0.0-2.0); EOSINOPHIL # 0.2 TH/MM3 (0-0.4); EOSINOPHIL % 2.7 % (0.0-4.0); HEMATOCRIT 36.9 % (39.0-51.0); HEMO FLAGS DIFF FINAL; LYMPH % 23.1 % (9.0-44.0); LYMPHOCYTE # 1.8 TH/MM3 (1.0-4.8); MEAN CELL VOLUME 95.2 FL (80.0-100.0); MEAN CORPUSCULAR HGB CONC 34.7 % (32.0-36.0); MONO % 8.4 % (0.0-8.0); NEUT % 65.4 % (16.0-70.0); PLATELET COUNT 156 TH/MM3 (150-450); RED BLOOD COUNT 3.87 MIL/MM3 (4.50-5.90); WHITE BLOOD COUNT 7.7 TH/MM3 (4.0-11.0)
[2017-01-12] MEDS ORDERED: GENTAMICIN SULFATE 80 MG/2 ML VIAL ONE (07:16)
[2017-01-12 07:31] LABS: BICARBONATE 30.5 MEQ/L (21.0-32.0); POTASSIUM 4.2 MEQ/L (3.5-5.1)
[2017-01-12] MEDS ORDERED: ACETAMINOPHEN 1000 MG/100 ML 100 ML IV ONE (07:31)
--- NOTE | 2017-01-12 07:48 | HHI.PR ---
Immediate Post Op Note Procedure Date: Jan 12, 2017 Pre Op Diagnosis: Right lower leg deep laceration with tendon/bone laceration, severed anterior tibial artery, chainsaw vs leg s/p I&D x 2 with 2 negative cultures Post Op Diagnosis: Same Surgeon: Conrad Gonzalez DPM Expert Medical Writer(s): Staff Procedure: Repair of tendon and skin lacerations Right leg Findings: Consistent with diagnosis. Anterior leg laceration and longitudinal incision opened and irrigation of area with 3L NS with irrigant, followed by debridement of nonviable tissue down to level of bone. No gross debris noted. Curettage of the bone took place, followed by repair of anterior tibial muscle/ tendon laceration, repair of extensor hallucis longus muscle/tendon laceration, and repair of extensor digitorum longus muscle/tendon laceration, all with 2-0 fiberwire. Followed by repair of skin laceration using 3-0 vicryl and 2-0 nylon. Xeroform, dsd, and short posterior splint applied in dorsiflexed position NWB RLE PT to eval/treat Ok to d/c home and follow up in [facility] for dressing changes weekly. No home health required, as anticipated. Keep splint/R leg clean, dry, intact. Bring fracture boot home upon d/c and bring to follow up appointment. Recommend broad spectrum oral antibiotics x 2 weeks upon d/c NWB RLE with crutches/walker per PT recommendations. Additional Information: n/a Complications: None Specimen(s) removed: None Estimated blood loss: Minimal Anesthesia: General, Local (20mL 0.5% marcaine plain) Drains: None IVF Tourniquet time (min at mmHg) n/a Patient to: PACU Patient Condition: Good Date/Time of Procedure: SEE SURGICAL CARE RECORD Conrad Gonzalez DPM Jan 12, 2017 07:48
[2017-01-12 08:00] VITALS: BP 172/80; PULSE 78; RESP 18; TEMP 95.7; O2SAT 97
[2017-01-12] MEDS: SODIUM CHLOR 0.9% 1000 ML INJ 1,000 ML IV SCH (08:15)
[2017-01-12] MEDS: DOCUSATE SODIUM 50 MG/SENNA 8.6 MG TAB PO SCH (09:00)
[2017-01-12] MEDS: NYSTAT/DIPHENHY/LIDO MOUTHWASH (Adult) 120ML SWISH-SWAL SCH ×2 (09:00→13:00)
[2017-01-12] MEDS: VANCOMYCIN INJ 1,750 MG in SODIUM CHLORID 0.9% 500 ML INJ 500 ML IV SCH (09:00)
[2017-01-12] MEDS ORDERED: BUPIVACAINE/EPINEPHRINE 0.5% PF 30 ML VIAL INFIL ONE (09:15)
[2017-01-12] MEDS ORDERED: *MEPERIDINE 25 MG INJ VIAL PERIprocedural Use ONLY ONE (09:28)
[2017-01-12] MEDS ORDERED: *morphine SULFATE 8 MG/ML PERIprocedure ONLY ONE (09:58)
[2017-01-12 10:15] VITALS: BP 115/70; PULSE 68; RESP 14
[2017-01-12] MEDS ORDERED: DO NOT ADM ANY ANTICOAGULANT DRUGS PRN (10:45)
[2017-01-12 12:18] VITALS: O2SAT 96
[2017-01-12] MEDS ORDERED: PHARMACY ORDERED LAB ONE (12:45)
--- NOTE | 2017-01-12 13:43 | HHI.FPPN ---
Subjective Remarks Patient was seen after surgery. He is doing well and wants to go home. He clearly states that he would go to his appointments and take his prophylactic antibiotics as instructed. He would like a non-wheeled walker to take home. He does not need a bedside commode because his bathroom is very close to his bedroom and he also does not want a wheelchair at this time. (Alethea Roque MD R2) Objective Vitals Vital Signs Date Time Temp Pulse Resp B/P (MAP) Pulse Ox O2 Delivery O2 Flow Rate FiO2 01/12/17 10:15 68 14 115/70 (85) 98 Nasal Cannula 2 01/12/17 10:00 79 14 128/80 (96) 98 Nasal Cannula 2 01/12/17 09:45 59 14 119/58 (78) 98 Nasal Cannula 2 01/12/17 09:29 97.5 89 14 128/83 (98) 99 Simple Mask 8 01/12/17 08:00 95.7 78 18 172/80 (110) 97 01/12/17 00:00 96.7 71 18 129/71 (90) 98 01/11/17 20:00 97.2 81 18 140/67 (91) 98 01/11/17 16:00 97.2 78 17 121/63 (82) 98 I/O 01/11/17 01/11/17 01/11/17 01/12/17 01/12/17 01/12/17 07:00 15:00 23:00 07:00 15:00 23:00 Intake Total 1833 ml 520 ml 1130 ml 200 ml 1150 ml Output Total 1475 ml 20 ml Balance 358 ml 520 ml 1130 ml 200 ml 1130 ml Intake Oral 480 ml 420 ml 480 ml 0 ml IV Total 1353 ml 100 ml 650 ml 200 ml 450 ml Other 700 ml Output Urine Total 1475 ml 0 ml Other 20 ml # Voids 5 3 1 # Bowel Movements 0 0 0 (Alethea Roque MD R2) Result Diagram: 01/12/17 0635 01/12/17 0635 Objective Remarks GENERAL: Lying in bed, no distress SKIN: No rashes or lesions. left lower leg wound wrapped in a splint. No obvious drainage, wrap is clear and dry. HEAD: Normocephalic. No conjunctivitis, no nasal discharge. EYES: No scleral icterus. No injection or drainage. ENT: No nasal discharge NECK: Supple, trachea midline. CARDIOVASCULAR: Regular rate and rhythm without audible murmurs, gallops, or rubs. RESPIRATORY: Breath sounds equal and clear bilaterally. No accessory muscle use. GASTROINTESTINAL: Abdomen soft, non-tender, nondistended. Normal active BS MUSCULOSKELETAL: Able to wiggle toes, normal capillary refill in toes, normal sensation in toes, can palpate the dorsalis pedis and PT pulses. Procedures Incision, drainage, and debridement of chain saw wound on 01/08, with repeat done on 01/10. Tendon repair on Friday 01/12. (Alethea Roque MD R2) A/P Assessment and Plan 26 year old male admitted with soft tissue, tendon/bone laceration of the right lower leg with severed anterior tibial artery, along with incomplete non- displaced fracture along the anterior cortex of the distal tibia and fibula. Seen and examined with Dr. Peterson. Discussed with Dr. Weeks Discharge Planning Plan is to discharge home today after repair of tendons and closure of the wound. Patient has had negative wound cultures. (Alethea Roque MD R2) Attending Attestation Case reviewed and discussed with the resident team. Agree with plan of care as discussed with me and documented in the resident note. (Modesto Weeks MD) Problem List: (1) Laceration of right lower extremity ICD Codes: S81.811A - Laceration without foreign body, right lower leg, initial encounter Status: Acute Plan: 26 year old male presented with soft tissue laceration of the right lower leg with flexor tendon injury, severed anterior tibial artery, along with incomplete non-displaced fracture along the anterior cortex of the distal tibia and fibula. - Initial washout was performed on 01/08 with repeat washout 01/10 - Repair of tendons was performed on Friday 01/[address] Gonzalez. Wound cultures have been negative. - Tetanus toxoid given in ED, tetanus immune globulin administered - Regular neurovascular checks, monitor for compartment syndrome - Gentamicin 80 mg premix IV every 8 hours, cefazolin 2 g premix IV every 8 hours, vancomycin 1750 mg IV every 12 hours with pharmacy consult - will discharge home on Clindamycin 600mg PO to complete 7 days of treatment - Pain management: Will discharge home on Percocet 10-325 PO PRN breakthrough pain, Tylenol 1000mg Q8h PO PRN pain and inflammation, and Ibuprofen 400mg PO PRN pain and inflammation - Non-weight bearing status - patient to use walker at home (2) Nutrition, metabolism, and development symptoms ICD Codes: R63.8 - Other symptoms and signs concerning food and fluid intake Status: Acute Plan: Regular diet Normal electrolytes NS at 100 mls/hr (3) Contraindication to anticoagulation therapy ICD Codes: Z53.09 - Procedure and treatment not carried out because of other contraindication Status: Acute Plan: -Heparin 5000 units subcutaneous every 8 hours, Hold anticoagulation until 24 hours after surgery (Alethea Roque MD R2) Alethea Roque MD R2 Jan 12, 2017 13:43 Modesto Weeks MD Jan 13, 2017 20:31
--- NOTE | 2017-01-12 13:43 | HHI.DCPOC ---
Discharge Care Plan Diagnosis: (1) Laceration of right lower extremity (2) Nondisplaced fracture of distal end of right tibia (3) Nondisplaced physeal fracture of distal end of right fibula Goals to Promote Your Health * To prevent worsening of your condition and complications * To maintain your health at the optimal level Directions to Meet Your Goals Take your medications as prescribed Follow your dietary instruction Follow activity as directed Keep your appointments as scheduled Take your immunizations and boosters as scheduled If your symptoms worsen call your PCP, if no PCP go to Urgent Care Center or Emergency Room Smoking is Dangerous to Your Health. Avoid second hand smoke Call the 24-hour hour crisis hotline for domestic abuse at Alethea Roque MD R2 Jan 12, 2017 13:43
--- NOTE | 2017-01-12 13:53 | HHI.FF ---
Face to Face Verification Diagnosis: (1) Laceration of right lower extremity (2) Nondisplaced fracture of distal end of right tibia (3) Nondisplaced physeal fracture of distal end of right fibula Home Health Nursing Order: Medical education Signs/symptoms of disease process Medication education-adverse effect Wound care and dressing changes (Home health nurse to change bandage with dry sterile bandage, xeroform/4x4/cast padding/koko bandage and reapply splint. Teach and train.) Nursing assessment with vital signs Venetian Blind Installer Order: To Evaluate: Living conditions/environment, Support services Order: To Provide: Long range planning, Community services I have seen patient Miguel Amaya, III on 01/12/17. My clinical findings support the need for the requested home health care services because: Ltd mobility - disease progression Need for psychosocial assistance I certify that my clinical findings support that this patient is homebound because: Post-op weakness Unable to use public transportation Alethea Roque MD R2 Jan 12, 2017 13:53
[2017-01-12] MEDS ORDERED: OXYC1TAB36 PO (14:01)
[2017-01-12] MEDS ORDERED: IBUP1TAB5 PO ×2 (14:01→14:55)
[2017-01-12] MEDS ORDERED: ACET-822 PO ×2 (14:01→14:55)
[2017-01-12] MEDS ORDERED: CLIN300C5 PO ×2 (14:01→14:55)
--- NOTE | 2017-01-12 14:05 | HHI.DS ---
Discharge Summary Admission Date Jan 08, 2017 at 23:09 Discharge Date: Jan 12, 2017 Admitting Diagnosis laceration right anterior chandler with tendinous injury (1) Laceration of right lower extremity Diagnosis: Principal ICD Codes: S81.811A - Laceration without foreign body, right lower leg, initial encounter Status: Acute Procedures Incision, drainage, and debridement of chain saw wound on 01/08, with repeat done on 01/10. Tendon repair on Friday 01/12. Brief History 26 year old generally healthy male presents to the ED after a chain saw accident. He was cutting a tree when the chain saw "kicked back" and struck his right lower anterior leg. The laceration reached deep into the muscle and slightly into the cortex of the tibia and fibula. He reports he had "quite a bit " of bleeding. His pain is currently well controlled with morphine. The accident happened at 10:30 this morning. The chain saw only struck the place described above and did not strike any other part of his body. He is not feeling weak, dizzy, or lightheaded. He is not having chest pain, shortness of breath, abdominal pain, nausea, vomiting. He is unable to dorsiflex his foot but is still able to plantar flex. He has palpable pulses, posterior tibial and dorsalis pedis. He has normal color of his foot. He has mild numbness in his toes, but is also wearing an ice pack. He received tetanus toxoid in the ED, and does not know when his last tetanus shot was. He has no significant past medical history and no history of surgeries. He does smoke a pack per day. He had childhood asthma that resolved as an adult. He reports no drug use. He drinks a moderate amount of alcohol but has never had alcohol withdrawals or seizures. CBC/BMP: 01/12/17 0635 01/12/17 0635 Significant Findings Laboratory Tests Test 01/09/17 18:01 01/10/17 06:30 01/11/17 05:40 01/11/17 17:28 Urine Mucus FEW /lpf (OCC) Urine Opiates Screen POS (NEG) Urine Benzodiazepines Screen POS (NEG) Red Blood Count 3.79 MIL/MM3 (4.50-5.90) 3.93 MIL/MM3 (4.50-5.90) Hemoglobin 12.8 GM/DL (13.0-17.0) Hematocrit 36.4 % (39.0-51.0) 37.5 % (39.0-51.0) Platelet Count 147 TH/MM3 (150-450) Calcium Level 8.0 MG/DL (8.5-10.1) Anion Gap 4 MEQ/L (5-15) White Blood Count 11.1 TH/MM3 (4.0-11.0) Neutrophils (%) (Auto) 89.4 % (16.0-70.0) Lymphocytes (%) (Auto) 5.9 % (9.0-44.0) Neutrophils # (Auto) 9.9 TH/MM3 (1.8-7.7) Lymphocytes # (Auto) 0.7 TH/MM3 (1.0-4.8) Random Glucose 140 MG/DL (74-106) Test 01/12/17 06:35 Red Blood Count 3.87 MIL/MM3 (4.50-5.90) Hemoglobin 12.8 GM/DL (13.0-17.0) Hematocrit 36.9 % (39.0-51.0) Monocytes (%) (Auto) 8.4 % (0.0-8.0) Calcium Level 8.2 MG/DL (8.5-10.1) Estimat Glomerular Filtration Rate 85 ML/MIN (>89) PE at Discharge GENERAL: Lying in bed, no distress SKIN: No rashes or lesions. left lower leg wound wrapped in a splint. No obvious drainage, wrap is clear and dry. HEAD: Normocephalic. No conjunctivitis, no nasal discharge. EYES: No scleral icterus. No injection or drainage. ENT: No nasal discharge NECK: Supple, trachea midline. CARDIOVASCULAR: Regular rate and rhythm without audible murmurs, gallops, or rubs. RESPIRATORY: Breath sounds equal and clear bilaterally. No accessory muscle use. GASTROINTESTINAL: Abdomen soft, non-tender, nondistended. Normal active BS MUSCULOSKELETAL: Able to wiggle toes, normal capillary refill in toes, normal sensation in toes, can palpate the dorsalis pedis and PT pulses. Hospital Course 26 year old male admitted with soft tissue, tendon/bone laceration of the right lower leg with severed anterior tibial artery, along with incomplete non- displaced fracture along the anterior cortex of the distal tibia and fibula. Initial washout was performed on 01/08 with repeat washout 01/10. Repair of tendons was performed on Friday 01/[address] Gonzalez. Wound cultures from 01/08 and 01/10 have been negative. During his hospital stay, he was managed with IV fluids as well as IV antibiotics gentamicin, cefazolin, and vancomycin. he would be discharged home with clindamycin 600mg PO to complete 7 days of treatment. Pain control at home with Percocet 10-325 PO PRN breakthrough pain, Tylenol 1000mg Q8h PO PRN and Ibuprofen 400mg PO PRN. Patient was given a wheeled walker to take home and would be provided with 2 courtesy home health wound care nursing visits. He is to follow up with Dr. Gonzalez's office for dressing changes. Pt Condition on Discharge: Stable Discharge Disposition: Discharge Home Discharge Instructions DIET: Follow Instructions for: As Tolerated, No Restrictions Activities you can perform: Partial Weight Bearing Other Activity Instructions: Non-weight bearing on affected leg until cleared by podiatry. Follow up Referrals: Podiatry - 2-3 Days New Medications: Acetaminophen (Tylenol Extra Strength) 500 Mg Tablet 1000 TAB PO Q8HR PRN for PAIN>5 and Inflammation, #30 TAB Take two(2) tablets by mouth every 8 hours Clindamycin (Clindamycin) 300 Mg Cap 600 MG PO Q8H for Infection, #24 CAP 0 Refills Take 2 tablets by mouth every 8 hrs Ibuprofen (Ibuprofen) 400 Mg Tab 400 MG PO Q8H PRN for PAIN>5 and Inflammation, #15 TAB 0 Refills Take 1 tablet by mouth every 8 hours. Oxycodone HCl/Acetaminophen (Oxycodone-Acetaminophen 10-325) 10 Mg-325 Mg Tablet 1 TAB PO Q6H PRN for BREAKTHROUGH PAIN, #15 TAB Alethea Roque MD R2 Jan 12, 2017 14:05
== END 2017-01-12 17:43 | disposition home health service (06) | DRG 500 ==
LOC: HOR 11:59 → INTOOBSV 13:35 → NEDA 13:35 → N06A 18:36 → OBSVTOIN 23:09
PROVIDERS: ADMIT Family Medicine; ATTEND Family Medicine
PROC: 0LQN0ZZ Repair Right Lower Leg Tendon, Open Approach (ICD-10-PCS; principal; 2017-01-08 15:28)
PROC: 0QDG0ZZ Extraction of Right Tibia, Open Approach (ICD-10-PCS; 2017-01-08 15:28)
PROC: 0QDG0ZZ Extraction of Right Tibia, Open Approach (ICD-10-PCS; 2017-01-10)
PROC: 0LQN0ZZ Repair Right Lower Leg Tendon, Open Approach (ICD-10-PCS; 2017-01-12)
PROC: 0KQS0ZZ Repair Right Lower Leg Muscle, Open Approach (ICD-10-PCS; 2017-01-12)
PROC: 0QDG0ZZ Extraction of Right Tibia, Open Approach (ICD-10-PCS; 2017-01-12)
DX: S86.221A Laceration of muscle(s) and tendon(s) of anterior muscle group at lower leg level, right leg, initial encounter (principal); S82.831B Other fracture of upper and lower end of right fibula, initial encounter for open fracture type I or II; S85.141A Laceration of anterior tibial artery, right leg, initial encounter; S82.391B Other fracture of lower end of right tibia, initial encounter for open fracture type I or II; R00.0 Tachycardia, unspecified; F17.210 Nicotine dependence, cigarettes, uncomplicated; W29.3XXA Contact with powered garden and outdoor hand tools and machinery, initial encounter
CPT/HCPCS: 71010; 73590; 73718; 80048; 80202; 80307; 81001; 85025; 85027; 86403; 87015; 87070; 87102; 87116; 87205; 87206; 90471; 90714; 93005; 94150; 96374; 96375; C1757; J0131; J0330; J0690; J1100; J1170; J1580; J1644; J1885; J2175; J2250; J2270; J2310; J2370; J2405; J3010; J3370; J7030; J7040